=== PATIENT | male | born 1980 | race Caucasian/White ===

== ENCOUNTER 2016-06-09 11:20 | Emergency (ER) | payer OTHER ==
[~2016-06-09] VITALS: Ht 175.3 cm; Wt 114.0 kg
[~2016-06-09 11:20] MED LIST: LISI-360 PO; NORC7.5T PO
[2016-06-09 11:22] VITALS: BP 133/99; PULSE 97; RESP 16; TEMP 98.5; O2SAT 97
[2016-06-09] MEDS ORDERED: LISI-515 PO (11:34)
[2016-06-09] MEDS ORDERED: HYDR-3533 PO (11:38)
[2016-06-09] MEDS ORDERED: PENI500T PO (11:41)
--- NOTE | 2016-06-09 11:42 | PD ---
HPI Chief Complaint: Oral / Dental Pain or Problem Time Seen by Provider: 11:38 Travel History International Travel<30 days: No Contact w/Intl Traveler<30days: No Traveled to known affect area: No History of Present Illness HPI 35-year-old male presents to the emergency department for evaluation of dental pain after his tooth was pulled on , 6 days ago. Patient reports associated pain. He states this started about 2 days ago. He believes he has dry socket from the tooth being pulled. He states that his dentist offered him an appointment on Tuesday, but he wanted to be seen sooner. He also states they are did offer an appointment yesterday, he could not make it then. Patient reports a history of degenerative disc disease and hypertension. He takes lisinopril daily. Patient denies any other complaints at this time. No fevers or chills. PFSH Past Medical History Cardiovascular Problems: Yes (htn) Hypertension: Yes Musculoskeletal: Yes (DJD) Social History Alcohol Use: No Tobacco Use: Yes ("SOMETIMES") Substance Use: No Allergies-Medications (Allergen,Severity, Reaction): Coded Allergies: No Known Allergies (Unverified , 06/09/16) Reported Meds & Prescriptions Reported Meds & Active Scripts Active Reported Lisinopril 20 Mg Tab 20 Mg PO DAILY Review of Systems Except as stated in HPI: all other systems reviewed are Neg Physical Exam Narrative GENERAL: Well-developed well-nourished male patient, ambulatory. Afebrile. SKIN: Warm and dry. HEAD: Normocephalic. Atraumatic. DENTAL: No loose or chipped teeth. No malocclusion. Tooth #21 has been pulled. He has tenderness to the gingiva. No dental abscess or fluctuance noted. ENT: Mucosa pink and moist. No erythema or exudates. No uvular edema. No uvular , palatal, or tonsillar deviation. Airway patent. Nasal turbinates appear normal without nasal blood, purulent drainage or septal hematoma. EYES: No scleral icterus. No injection or drainage. NECK: Supple, trachea midline. No JVD or lymphadenopathy. CARDIOVASCULAR: Regular rate and rhythm without murmurs, gallops, or rubs. RESPIRATORY: Breath sounds equal bilaterally. No accessory muscle use. Lungs sounds are clear to auscultation. Data Data Last Documented VS Vital Signs Date Time Temp Pulse Resp B/P Pulse Ox O2 Delivery O2 Flow Rate FiO2 06/09/16 11:22 98.5 97 16 133/99 97 MDM Medical Decision Making Medical Screen Exam Complete: Yes Emergency Medical Condition: Yes Medical Record Reviewed: Yes Differential Diagnosis Dry socket versus dental abscess versus dental caries Narrative Course 35-year-old male presents to the emergency department for evaluation of dental pain after a tooth pulled 6 days ago. There is no evidence of dental abscess on exam. Patient is instructed on need to follow up with his dentist. He is given Toradol 60 mg IM in the emergency department. He'll be discharged with a short-term prescription for Lortab for pain and pen VK. Patient is agreeable to this plan. Diagnosis Primary Impression: Dry tooth socket Referrals: Dentist call for appointment Patient Instructions: Dry Socket (ED), General Instructions Additional Instructions: Follow-up with your dentist. Take antibiotic as instructed until gone. This is free at [facility]. Take Lortab as directed as needed for pain. Caution this can make you drowsy so do not drive after taking. Return to the emergency department for any acute worsening of symptoms. Med/Other Pt SpecificInfo: Prescription(s) given Scripts Penicillin V Potassium 500 Mg [id number] Mg PO Q8H 7 Days Ref 0 Prov:Unique Bennett 06/09/16 Hydrocodone-Acetaminophen (Lortab)5-325 Mg Tab1 Tab PO Q6H PRN (PAIN) #12 TAB Ref 0 Prov:Geovanni Perez MD 06/09/16 Disposition: 01 DISCHARGE HOME Condition: Stable Unique Bennett Jun 09, 2016 11:42
[2016-06-09] MEDS ORDERED: KETOROLAC TROMETHAMINE 60 MG/2 ML (IM) VIAL IM ONE (11:45)
== END 2016-06-09 11:45 | disposition home or self-care (01) ==
LOC: PHEFT 11:20
DX: M27.3 Alveolitis of jaws (principal); I10 Essential (primary) hypertension; M19.90 Unspecified osteoarthritis, unspecified site
CPT/HCPCS: 96372; 99282; J1885

== ENCOUNTER 2016-06-14 10:41 | Emergency (ER) | payer OTHER ==
[~2016-06-14] VITALS: Ht 175.3 cm; Wt 115.0 kg
[~2016-06-14 10:41] MED LIST changes: +HYDR-3533 PO; -LISI-360 PO; +LISI-515 PO; -NORC7.5T PO; +PENI500T PO
[2016-06-14 10:46] VITALS: BP 142/102; PULSE 93; RESP 16; TEMP 98.7; O2SAT 97
--- NOTE | 2016-06-14 11:09 | PD ---
HPI Chief Complaint: Oral / Dental Pain or Problem Time Seen by Provider: 11:05 Travel History International Travel<30 days: No Contact w/Intl Traveler<30days: No Traveled to known affect area: No History of Present Illness HPI Patient is a 35-year-old male presenting with dental pain. He had a tooth on the bottom left pulled a little over one week ago. He had pain related to dry socket was seen here 5 days prior. At that time there is no evidence of infection, however he was given Pen-Vee K prophylactically and opioid pain medications. He has not seen a dentist in follow-up and states he hasn't tomorrow. He states that he has run out of the pain medication and requests a refill. The pain he had this sharp sometimes but mostly aching and throbbing. He denies any bleeding, discharge, swelling or fevers. History Social History Alcohol Use: No Tobacco Use: Yes ("SOMETIMES") Allergies-Medications (Allergen,Severity, Reaction): Coded Allergies: No Known Allergies (Unverified , 06/14/16) Reported Meds & Prescriptions Reported Meds & Active Scripts Active Penicillin V Potassium 500 Mg Tab 500 Mg PO Q8H 7 Days Lortab (Hydrocodone-Acetaminophen) 5-325 Mg Tab 1 Tab PO Q6H PRN Reported Lisinopril 20 Mg Tab 20 Mg PO DAILY Review of Systems General / Constitutional: No: Fever HENT: Positive: Dental Difficulties, No: Masses, Gingival Bleeding Hematologic/Lymphatic: No: Lymph Node Enlargement Physical Exam Narrative GENERAL: Well-developed and well-nourished adult male in no acute distress. SKIN: Warm and dry. Good turgor without tenting. HEAD: Normocephalic and atraumatic. EYES: PERRL bilaterally, 5mm. EOMI bilaterally. No injection or icterus present. No proptosis. Lids without edema or erythema. ENT: Tooth #21 is absent. The gingiva has tenderness diffusely but there is no edema, erythema, induration, fluctuance, drainage or bleeding. The area appears to be healing well and there is no open socket or deep pocket or any food impaction. No buccal or sublingual masses. Buccal mucosa pink and moist. Oropharynx free of erythema, tonsillar hypertrophy, masses, swelling, asymmetry and exudates. Uvula midline and airway patent. NECK: Supple, no meningeal signs. No induration or masses palpated. Trachea midline, no JVD. No cervical or facial lymphadenopathy. CARDIOVASCULAR: Regular rate and rhythm without murmurs, rubs, clicks or gallops. RESPIRATORY: Clear to auscultation bilaterally with symmetrical rise and fall, no distress or use of accessory muscles. NEUROLOGIC: CN II-XII grossly intact. Awake and alert. Motor grossly within normal limits. Normal speech. PSYCHIATRIC: Appropriate mood and affect; insight and judgment normal. Data Data Last Documented VS Vital Signs Date Time Temp Pulse Resp B/P Pulse Ox O2 Delivery O2 Flow Rate FiO2 06/14/16 10:46 98.7 93 16 142/102 97 MDM Medical Screen Exam Complete: Yes Emergency Medical Condition: No Narrative Course Patient's 35-year-old male presenting for the second time in 5 days for dental pain. He had a tooth pulled and relates this pain is from a "dry socket". He was given Pen-Vee K prophylactically and opioid narcotics for pain. There is no evidence of infection on exam. He has not seen his dentist in follow-up but is scheduled to see him tomorrow. I examined the patient that I do not believe opioid narcotics are warranted emergently and will recommend anti- inflammatories and follow-up with his dentist. A medical screening exam was performed: At the time of evaluation the presenting medical condition was determined not to be of an emergent nature. The patient was given the option of receiving additional care, but declined. Patient was given options for additional community resources from which to obtain care. The Patient Has Been advised to seek medical attention for their presenting complaint. The patient has been advised to return to the ER at any time if an emergent condition develops. Primary Impression: Encounter for medical screening examination Condition: Stable Laron Carpio III Jun 14, 2016 11:09
== END 2016-06-14 11:12 | disposition left against medical advice (07) ==
LOC: PHEFT 10:41
DX: K08.89 Other specified disorders of teeth and supporting structures (principal); Z72.0 Tobacco use
CPT/HCPCS: 99281

== ENCOUNTER 2016-06-21 08:35 | Emergency (ER) | payer OTHER ==
[~2016-06-21] VITALS: Ht 175.3 cm; Wt 116.9 kg
[2016-06-21 08:39] VITALS: BP 137/106; PULSE 88; RESP 14; TEMP 99.1; O2SAT 97
[2016-06-21] MEDS ORDERED: CLIN75CA PO (08:57)
[2016-06-21] MEDS ORDERED: HYDR-3534 PO (08:57)
[2016-06-21] MEDS ORDERED: TYLE325T PO (08:58)
--- NOTE | 2016-06-21 09:05 | PD ---
HPI Chief Complaint: Abdominal Pain Time Seen by Provider: 08:46 Travel History International Travel<30 days: No Contact w/Intl Traveler<30days: No Traveled to known affect area: No History of Present Illness HPI This is a 35 year old male who presents with right sided abdominal pain, dull, pressure like, 4/10, associated with a low grade fever and nausea. He denies any vomiting or diarrhea. He denies any chest pain or shortness of breath. Three weeks ago he had a tooth extraction and he has been having some jaw pain. He was given clindamycin 2 days ago by an ER, and ever since he took the clindamycin it made him sick, so he switched back to penicillin. He has been taking lortab and tylenol for jaw pain. The patient is concerned about his liver because he has been taking so much tylenol. PFSH Past Medical History Hx Anticoagulant Therapy: No Cardiovascular Problems: Yes (HTN ) Diabetes: No Diminished Hearing: No Hypertension: Yes Musculoskeletal: Yes (DDD) Influenza Vaccination: No Past Surgical History Tonsillectomy: Yes Social History Alcohol Use: No Tobacco Use: Yes ("SOMETIMES") Substance Use: No Allergies-Medications (Allergen,Severity, Reaction): Coded Allergies: No Known Allergies (Unverified , 06/21/16) Reported Meds & Prescriptions Reported Meds & Active Scripts Active Penicillin V Potassium 500 Mg Tab 500 Mg PO Q8H 7 Days Reported Tylenol (Acetaminophen) 325 Mg Tab 325 Mg PO Q4H PRN Clindamycin (Clindamycin HCl) 75 Mg Cap 75 Mg PO Q6H Lortab (Hydrocodone-Acetaminophen) 7.5-325 Mg Tab 1 Tab PO Q4H PRN Lisinopril 20 Mg Tab 20 Mg PO DAILY Review of Systems Except as stated in HPI: all other systems reviewed are Neg Physical Exam Narrative GENERAL:Well appearing, no acute distress SKIN: Warm and dry. HEAD: Atraumatic. Normocephalic. EYES: Pupils equal and round. No injection or drainage. ENT: Moist mucous membranes NECK: Trachea midline. CARDIOVASCULAR: Regular rate and rhythm. No murmur appreciated. RESPIRATORY: Clear to auscultation. Breath sounds equal bilaterally. GASTROINTESTINAL: Abdomen soft, tender to palpation in the right upper quadrant with no rebound/guarding. MUSCULOSKELETAL: No obvious deformities. NEUROLOGICAL: Awake and alert. No obvious cranial nerve deficits. Moving all extremities. PSYCHIATRIC: Appropriate mood and affect; insight and judgment normal. Data Data Last Documented VS Vital Signs Date Time Temp Pulse Resp B/P Pulse Ox O2 Delivery O2 Flow Rate FiO2 06/21/16 08:39 99.1 88 14 137/106 97 Orders Complete Blood Count With Diff (06/21/16 09:08) Comprehensive Metabolic Panel (06/21/16 09:08) ^ Insert Iv (06/21/16 09:08) Ed Poc Ultrasound (06/21/16 ) Acetamin-Hydrocod 325-5 Mg ([place] 5-325 (06/21/16 10:00) Labs Laboratory Tests Test 06/21/16 09:20 White Blood Count 6.8 TH/MM3 Red Blood Count 4.72 MIL/MM3 Hemoglobin 14.0 GM/DL Hematocrit 40.7 % Mean Corpuscular Volume 86.4 FL Mean Corpuscular Hemoglobin 29.7 PG Mean Corpuscular Hemoglobin 34.4 % Concent Red Cell Distribution Width 12.4 % Platelet Count 326 TH/MM3 Mean Platelet Volume 6.8 FL Neutrophils (%) (Auto) 62.1 % Lymphocytes (%) (Auto) 26.6 % Monocytes (%) (Auto) 8.4 % Eosinophils (%) (Auto) 1.8 % Basophils (%) (Auto) 1.1 % Neutrophils # (Auto) 4.2 TH/MM3 Lymphocytes # (Auto) 1.8 TH/MM3 Monocytes # (Auto) 0.6 TH/MM3 Eosinophils # (Auto) 0.1 TH/MM3 Basophils # (Auto) 0.1 TH/MM3 CBC Comment DIFF FINAL Differential Comment Sodium Level 136 MEQ/L Potassium Level 4.3 MEQ/L Chloride Level 101 MEQ/L Carbon Dioxide Level 28.4 MEQ/L Anion Gap 7 MEQ/L Blood Urea Nitrogen 18 MG/DL Creatinine 1.00 MG/DL Estimat Glomerular Filtration 85 ML/MIN Rate Random Glucose 91 MG/DL Calcium Level 8.9 MG/DL Total Bilirubin 0.4 MG/DL Aspartate Amino Transf 23 U/L (AST/SGOT) Alanine Aminotransferase 55 U/L (ALT/SGPT) Alkaline Phosphatase 69 U/L Total Protein 7.8 GM/DL Albumin 3.9 GM/DL MDM Medical Decision Making Medical Screen Exam Complete: Yes Emergency Medical Condition: Yes Interpretation(s) Temperature is 99.1 No leukocytosis Electrolytes are reassuring Differential Diagnosis Cholelithiasis, cholecystitis, appendicitis, hepatitis Narrative Course This is a 35-year-old male who presents to the emergency department with right upper quadrant abdominal pain in the setting of to recent dental extractions. He was concerned that he may have some liver toxicity from all the Tylenol that he is taking. He was placed on a monitor and an IV was established. Labs are obtained which are reassuring with a normal white blood cell count. He is tender in the right upper quadrant. I performed a bedside ultrasound and I don' t appreciate any cholecystitis. I didn't appreciate any obvious gallstones. I think the patient is safe for outpatient evaluation by his primary care physician. Procedures Procedure Narrative Gallbladder ultrasound: Ultrasound of the gallbladder was performed. Gallbladder wall is .09cm and common bile duct measures .17cm. patient did have some tenderness with evaluation of the gallbladder, but no pericholecystic fluid appreciated. Diagnosis Primary Impression: Abdominal pain Qualified Code: R10.11 - Right upper quadrant abdominal pain Ruled Out: Cholecystitis, Liver failure Patient Instructions: General Instructions Additional Instructions: If you develop severe or worsening abdominal pain, fever>100.4, persistent vomiting or inability to eat or drink return to the emergency department immediately. Follow up with your primary care physician in 1-2 days for a check-up. Med/Other Pt SpecificInfo: No Change to Meds Disposition: 01 DISCHARGE HOME Condition: Stable Namrata Castrejon MD Jun 21, 2016 09:05
[2016-06-21 09:30] LABS: AUTOMATED NEUTROPHIL # 4.2 TH/MM3 (1.8-7.7); BASOPHIL # 0.1 TH/MM3 (0-0.2); BASOPHIL % 1.1 % (0.0-2.0); EOSINOPHIL # 0.1 TH/MM3 (0-0.4); EOSINOPHIL % 1.8 % (0.0-4.0); HEMATOCRIT 40.7 % (39.0-51.0); HEMO FLAGS DIFF FINAL; LYMPH % 26.6 % (9.0-44.0); LYMPHOCYTE # 1.8 TH/MM3 (1.0-4.8); MEAN CELL VOLUME 86.4 FL (80.0-100.0); MEAN CORPUSCULAR HEMOGLOBIN 29.7 PG (27.0-34.0); MEAN CORPUSCULAR HGB CONC 34.4 % (32.0-36.0); MONO % 8.4 % (0.0-8.0); NEUT % 62.1 % (16.0-70.0); PLATELET COUNT 326 TH/MM3 (150-450); RED BLOOD COUNT 4.72 MIL/MM3 (4.50-5.90); RED CELL DISTRIBUTION WIDTH 12.4 % (11.6-17.2); WHITE BLOOD COUNT 6.8 TH/MM3 (4.0-11.0)
[2016-06-21 09:53] LABS: BICARBONATE 28.4 MEQ/L (21.0-32.0)
[2016-06-21 09:56] LABS: ANION GAP 7 MEQ/L (5-15); CHLORIDE 101 MEQ/L (98-107); GLOMERULAR FILTRATION RATE 85 ML/MIN (>89); POTASSIUM 4.3 MEQ/L (3.5-5.1); SODIUM (NA) 136 MEQ/L (136-145)
[2016-06-21 09:57] LABS: ALT (GPT) 55 U/L (12-78)
[2016-06-21 09:58] LABS: TOTAL BILIRUBIN ADULT 0.4 MG/DL (0.2-1.0)
[2016-06-21 09:59] LABS: ALKALINE PHOSPHATASE 69 U/L (45-117)
[2016-06-21] MEDS ORDERED: ACETAMINOPHEN/HYDROcodone 325 MG/5 MG TAB PO ONE (10:00)
[2016-06-21 10:01] LABS: AST (GOT) 23 U/L (15-37)
[2016-06-21 10:02] LABS: BLOOD UREA NITROGEN 18 MG/DL (7-18)
[2016-06-21] MEDS ORDERED: ZOFR4TAB3 SL (10:26)
[2016-06-21 10:44] VITALS: BP 145/72
[2016-06-21 10:46] VITALS: RESP 16
== END 2016-06-21 10:54 | disposition home or self-care (01) ==
LOC: PHED 08:35
DX: R10.11 Right upper quadrant pain (principal); I10 Essential (primary) hypertension
CPT/HCPCS: 80053; 85025; 99284

== ENCOUNTER 2016-07-09 12:20 | Emergency (ER) | payer OTHER ==
[~2016-07-09] VITALS: Ht 175.3 cm; Wt 110.0 kg
[~2016-07-09 12:20] MED LIST changes: +CLIN75CA PO; -HYDR-3533 PO; +HYDR-3534 PO; +TYLE325T PO; +ZOFR4TAB3 SL
[2016-07-09 12:26] VITALS: BP 142/92; PULSE 108; RESP 16; TEMP 98.2; O2SAT 98
--- NOTE | 2016-07-09 13:02 | PD ---
HPI Chief Complaint: Oral / Dental Pain or Problem Time Seen by Provider: 12:57 Travel History International Travel<30 days: No Contact w/Intl Traveler<30days: No Traveled to known affect area: No History of Present Illness HPI Patient comes in complaining of continued left lower dental pain ongoing since having an extraction done on the of this month. Patient states he's has a follow-up appointment with the dentist however is not until this upcoming Tuesday. Patient states he went to [place] on the and given a prescription for [place] as well as ibuprofen. Patient states he's out of [place] only has two ibuprofen left. Patient states pain is worse with eating. Denies any fevers, radiation of the pain, difficulty swallowing, or being on antibiotics. PFSH Past Medical History Hx Anticoagulant Therapy: No Cardiovascular Problems: Yes (HTN ) Diabetes: No Diminished Hearing: No Hypertension: Yes Musculoskeletal: Yes (DDD) Past Surgical History Tonsillectomy: Yes Social History Alcohol Use: No Tobacco Use: Yes ("SOMETIMES") Substance Use: No Allergies-Medications (Allergen,Severity, Reaction): Coded Allergies: No Known Allergies (Unverified , 07/09/16) Reported Meds & Prescriptions Reported Meds & Active Scripts Active Ibuprofen 800 Mg Tab 800 Mg PO Q8H PRN Augmentin (Amoxicillin-Clavulanate) 875-125 mg Tab 875 Mg PO BID 7 Days not for use in CrCl <30 ml/min. Zofran Odt (Ondansetron Odt) 4 Mg Tab 4 Mg SL Q6HR PRN Penicillin V Potassium 500 Mg Tab 500 Mg PO Q8H 7 Days Reported Tylenol (Acetaminophen) 325 Mg Tab 325 Mg PO Q4H PRN Clindamycin (Clindamycin HCl) 75 Mg Cap 75 Mg PO Q6H Lortab (Hydrocodone-Acetaminophen) 7.5-325 Mg Tab 1 Tab PO Q4H PRN Lisinopril 20 Mg Tab 20 Mg PO DAILY Physical Exam Narrative GENERAL: Well-developed, overly nourished, in no acute distress, and non-ill appearing. SKIN: Warm and dry. HEAD: Atraumatic. Normocephalic. EYES: Pupils equal and round. EOMI. No scleral icterus. No injection or drainage. ENT: No nasal bleeding or discharge. Mucous membranes pink and moist. Appears to be a dry socket/low healing wound from previous dental extraction is tender to palpation left lower jaw. There is no drainage, visible abscess, or palpable abscess. Floor the mouth, submandibular, submental are all to soft palpation. NECK: Trachea midline. No cervical lymphadenopathy. Supple. No nuclear rigidity. RESPIRATORY: No accessory muscle use. No respiratory distress. MUSCULOSKELETAL: No obvious deformities. No clubbing. No cyanosis. No edema. Full range of motion. NEUROLOGICAL: Awake and alert. No obvious cranial nerve deficits. Motor grossly within normal limits. Normal speech. PSYCHIATRIC: Appropriate mood and affect; insight and judgment normal. Data Data Last Documented VS Vital Signs Date Time Temp Pulse Resp B/P Pulse Ox O2 Delivery O2 Flow Rate FiO2 07/09/16 12:26 98.2 108 16 142/92 98 MDM Medical Decision Making Medical Screen Exam Complete: Yes Emergency Medical Condition: No Differential Diagnosis Dental infection, dental abscess, dentalgia, dry socket, other Narrative Course The patient presented with dental pain. There is no fever. There is no significant facial swelling or evidence of cellulitis. There is no evidence of drainable abscess at this time. There is no evidence of significant deep or invading abscess at this time. The patient will be placed on antibiotics and pain medication. The patient was instructed to follow up with a dentist as scheduled. Warnings were discussed with the patient regarding worsening of infection. The patient is to return if pain worsens, develops progressive swelling or facial redness or fever. The patient agrees with plan. Patient in no obvious distress upon re-evaluation. Patient was offered a dental block but declined at this time. Patient was asked if they wanted to speak to my attending, which the patient did not wish to do at this time. Any questions/concerns in reference to patient diagnosis/condition discussed and clarified prior to patient's discharge. Reinforced sheer importance of close follow up with patient's primary physician or primary care clinic and dentist. Instructed patient to return to ED immediately, if symptoms return/worsen. Pt showed understanding of above instructions. Further instructions and recommendations were detailed in discharge paperwork. Pt ambulated without difficulty out of ED at discharge. Diagnosis Primary Impression: Dentalgia Patient Instructions: Dental Abscess (GEN), Dental Caries (ED), Dry Socket (ED) , General Instructions Additional Instructions: Follow-up with your primary care physician and dentist as soon as possible. Rinse mouth with warm salt water gargles. Take all medication as prescribed. Return to the emergency department if symptoms get worse. Med/Other Pt SpecificInfo: Prescription(s) given Scripts Ibuprofen 800 Mg [id number] Mg PO Q8H PRN (PAIN SCALE 1 TO 10) #15 TAB Ref 0 Prov:Nancy Campa MD 07/09/16 Amoxicillin-Clavulanate (Augmentin)875-125 mg [id number] Mg PO BID 7 Days Ref 0 not for use in CrCl <30 ml/min. Prov:Nancy Campa MD 07/09/16 Disposition: 01 DISCHARGE HOME Condition: Stable Benjamín Lynn Jul 09, 2016 13:02
[2016-07-09] MEDS ORDERED: AUGM875T PO (13:04)
[2016-07-09] MEDS ORDERED: IBUP800T23 PO (13:04)
== END 2016-07-09 13:20 | disposition home or self-care (01) ==
LOC: NEPB 12:20
DX: K08.89 Other specified disorders of teeth and supporting structures (principal); I10 Essential (primary) hypertension
CPT/HCPCS: 99282

== ENCOUNTER 2016-11-02 12:12 | Emergency (ER) | payer OTHER ==
[~2016-11-02] VITALS: Ht 175.3 cm; Wt 114.5 kg
[~2016-11-02 12:12] MED LIST changes: -CLIN75CA PO; -HYDR-3534 PO; -PENI500T PO; -TYLE325T PO; -ZOFR4TAB3 SL
[2016-11-02 12:24] VITALS: BP 103/74; PULSE 120; RESP 16; TEMP 98.8; O2SAT 98
[2016-11-02] MEDS ORDERED: LISI40TA PO (13:01)
--- NOTE | 2016-11-02 13:26 | PD ---
HPI Chief Complaint: Back/ Neck Pain or Injury Time Seen by Provider: 13:11 Travel History International Travel<30 days: No Contact w/Intl Traveler<30days: No Traveled to known affect area: No History of Present Illness HPI This 35-year-old male is complaining of left posterior chest pain. He says that he was playing catch 2 days ago and thinks he injured it pulling a football. He's had a left posterior chest pain since the pain is aggravated by certain movements, deep breathing and sneezing. He has not had fever or chills. PFSH Past Medical History Hx Anticoagulant Therapy: No Cardiovascular Problems: Yes (HTN) Diabetes: No Diminished Hearing: No Hypertension: Yes Musculoskeletal: Yes (DDD) Influenza Vaccination: No ?: Not Past Surgical History Tonsillectomy: Yes Social History Alcohol Use: No Tobacco Use: Yes ("SOMETIMES") Substance Use: No Allergies-Medications (Allergen,Severity, Reaction): Coded Allergies: No Known Allergies (Unverified , 11/02/16) Reported Meds & Prescriptions Reported Meds & Active Scripts Active Reported Lisinopril 40 Mg Tab 40 Mg PO DAILY Lisinopril 20 Mg Tab 20 Mg PO DAILY Review of Systems General / Constitutional: No: Fever Eyes: No: Diploplia, Blurred Vision HENT: No: Headaches Cardiovascular: Positive: Chest Pain or Discomfort, No: Palpitations Respiratory: No: Cough, Shortness of Breath Gastrointestinal: No: Nausea, Vomiting Genitourinary: No: Frequency, Dysuria Musculoskeletal: No: Myalgias, Arthralgias Skin: No Rash Physical Exam Narrative GENERAL: Well-developed male SKIN: Focused skin assessment warm/dry. HEAD: Atraumatic. Normocephalic. EYES: Pupils equal and round. No scleral icterus. No injection or drainage. ENT: No nasal bleeding or discharge. Mucous membranes pink and moist. NECK: Trachea midline. No JVD. CARDIOVASCULAR: Regular rate and rhythm. No murmur appreciated. RESPIRATORY: No accessory muscle use. Clear to auscultation. Breath sounds equal bilaterally. The pain is a left posterior chest GASTROINTESTINAL: Abdomen soft, non-tender, nondistended. Hepatic and splenic margins not palpable. MUSCULOSKELETAL: No obvious deformities. No clubbing. No cyanosis. No edema. NEUROLOGICAL: Awake and alert. No obvious cranial nerve deficits. Motor grossly within normal limits. Normal speech. PSYCHIATRIC: Appropriate mood and affect; insight and judgment normal. Data Data Last Documented VS Vital Signs Date Time Temp Pulse Resp B/P Pulse Ox O2 Delivery O2 Flow Rate FiO2 11/02/16 12:24 98.8 120 16 103/74 98 Orders Chest, Pa & Lat (11/02/16 13:22) [facility] Medical Decision Making Medical Screen Exam Complete: Yes Emergency Medical Condition: Yes Medical Record Reviewed: Yes Differential Diagnosis Differential includes rib fracture, chest wall pain, muscular strain Narrative Course Chest x-ray is negative. History is consistent with a muscular strain of the chest wall. Diagnosis Primary Impression: Chest wall pain Scripts Hydrocodone-Acetaminophen (Lortab)7.5-325 Mg Tab1 Tab PO Q4H PRN (PAIN) #15 TAB Ref 0 Prov:Francisco Javier Ruth MD 11/02/16 Cyclobenzaprine (Flexeril)10 Mg Tab10 Mg PO TID #20 TAB Ref 0 Prov:Francisco Javier Ruth MD 11/02/16 Disposition: 01 DISCHARGE HOME Condition: Stable Francisco Javier Ruth MD Nov 02, 2016 13:26
--- NOTE | 2016-11-02 14:06 | RADHPO ---
EXAM DATE/TIME: 11/02/2016 13:32 [facility] COMPARISON: No previous studies available for comparison. INDICATIONS : Posterior chest pain after throwing football 3 days ago. MEDICAL HISTORY : Hypertension. DDD. SURGICAL HISTORY : Tonsillectomy. Right wrist. ENCOUNTER: Initial ACUITY: 3 days PAIN SCORE: 7/10 LOCATION: chest FINDINGS: PA and lateral views of the chest demonstrate the lungs to be symmetrically aerated without evidence of mass, infiltrate or effusion. The cardiomediastinal contours are unremarkable. Osseous structure s are intact. CONCLUSION: 1. No acute cardiopulmonary disease. Agapito Ward MD on November 02, 2016 at 14:04 Board Certified Radiologist. This report was verified electronically.
[2016-11-02] MEDS ORDERED: CYCL1TAB29 PO (14:19)
[2016-11-02] MEDS ORDERED: HYDR-3534 PO (14:19)
== END 2016-11-02 14:42 | disposition home or self-care (01) ==
LOC: PHED 12:12
DX: R07.89 Other chest pain (principal); I10 Essential (primary) hypertension; Z72.0 Tobacco use
CPT/HCPCS: 71020; 99284

== ENCOUNTER 2016-11-17 10:44 | Inpatient (IN) | payer OTHER ==
[~2016-11-17] VITALS: Ht 175.3 cm; Wt 98.5 kg
[~2016-11-17 10:44] MED LIST changes: +CYCL1TAB29 PO; +HYDR-3534 PO; +LISI40TA PO
[2016-11-17 10:47] VITALS: BP 136/92; PULSE 114; RESP 20; TEMP 98.6; O2SAT 97
--- NOTE | 2016-11-17 11:19 | PD ---
HPI Chief Complaint: Psychiatric Symptoms Time Seen by Provider: 11:15 Travel History International Travel<30 days: No Contact w/Intl Traveler<30days: No Traveled to known affect area: No History of Present Illness HPI 35-year-old male presents emergency department requesting psychiatric evaluation. Patient reports he has a history of bipolar, borderline personality disorder, anxiety, depression, PTSD with rage. He reports that he moved here about a year and a half ago from [place] and has been off of his psych meds which include an inega, Lamictal since that time. He reports he recently ended a relationship which has left him feeling depressed, anxious and recently today homicidal and suicidal. He reports his plan is to attempt to hang himself which she is attempted in the past. He also reports feelings of wanting to "strangle other people". PFSH Past Medical History Narrative Medical Significant for bipolar disorder, borderline personality disorder, anxiety, depression, PTSD Hx Anticoagulant Therapy: No Cardiovascular Problems: Yes (CHF) Diabetes: No Diminished Hearing: No Hypertension: Yes Musculoskeletal: Yes (DDD) Past Surgical History Tonsillectomy: Yes Social History Alcohol Use: No Tobacco Use: Yes ("SOMETIMES") Substance Use: No Allergies-Medications (Allergen,Severity, Reaction): Coded Allergies: No Known Allergies (Unverified , 11/17/16) Reported Meds & Prescriptions Reported Meds & Active Scripts Active Reported Lamictal (Lamotrigine) 100 Mg Tab 100 Mg PO BID [invega shot ] Aspirin 81 Mg Chew 81 Mg CHEW DAILY Robaxin (Methocarbamol) 500 Mg Tab 500 Mg PO QID [place] (Hydrocodone-Acetaminophen) 10-325 Mg Tab 1 Tab PO Q6H PRN Oxycodone (Oxycodone HCl) 30 Mg Tab 30 Mg PO Q12HR PRN Atenolol 50 Mg Tab 50 Mg PO DAILY Lisinopril 40 Mg Tab 40 Mg PO DAILY Lisinopril 20 Mg Tab 20 Mg PO DAILY Review of Systems Except as stated in HPI: all other systems reviewed are Neg General / Constitutional: No: Fever Eyes: No: Visual changes HENT: No: Headaches Cardiovascular: No: Chest Pain or Discomfort Respiratory: No: Shortness of Breath Gastrointestinal: No: Abdominal Pain Genitourinary: No: Dysuria Psychiatric: Positive: Depression, Suicidal Ideations, Homicidal Ideation Physical Exam Narrative GENERAL: Alert, well-appearing male. No acute distress. SKIN: Focused skin assessment warm/dry. HEAD: Atraumatic. Normocephalic. EYES: Pupils equal and round. No scleral icterus. No injection or drainage. ENT: No nasal bleeding or discharge. Mucous membranes pink and moist. NECK: Trachea midline. No JVD. CARDIOVASCULAR: Regular rate and rhythm. No murmur appreciated. RESPIRATORY: No accessory muscle use. Clear to auscultation. Breath sounds equal bilaterally. GASTROINTESTINAL: Abdomen soft, non-tender, nondistended. Hepatic and splenic margins not palpable. MUSCULOSKELETAL: No obvious deformities. No clubbing. No cyanosis. No edema. NEUROLOGICAL: Awake and alert. No obvious cranial nerve deficits. Motor grossly within normal limits. Normal speech. PSYCHIATRIC: Appropriate mood and affect; insight and judgment normal. Patient avoids eye contact. Data Data Last Documented VS Vital Signs Date Time Temp Pulse Resp B/P Pulse Ox O2 Delivery O2 Flow Rate FiO2 11/17/16 10:47 98.6 114 20 136/92 97 Room Air Orders Complete Blood Count With Diff (11/17/16 11:27) Comprehensive Metabolic Panel (11/17/16 11:27) Psych Screen (11/17/16 11:27) Drug Screen, Random Urine (11/17/16 11:27) Diet Regular Basic (11/17/16 Lunch) Labs Laboratory Tests Test 11/17/16 11:35 White Blood Count 8.1 TH/MM3 Red Blood Count 4.83 MIL/MM3 Hemoglobin 14.0 GM/DL Hematocrit 41.3 % Mean Corpuscular Volume 85.5 FL Mean Corpuscular Hemoglobin 29.0 PG Mean Corpuscular Hemoglobin 33.9 % Concent Red Cell Distribution Width 14.9 % Platelet Count 337 TH/MM3 Mean Platelet Volume 7.2 FL Neutrophils (%) (Auto) 75.9 % Lymphocytes (%) (Auto) 15.8 % Monocytes (%) (Auto) 7.5 % Eosinophils (%) (Auto) 0.4 % Basophils (%) (Auto) 0.4 % Neutrophils # (Auto) 6.2 TH/MM3 Lymphocytes # (Auto) 1.3 TH/MM3 Monocytes # (Auto) 0.6 TH/MM3 Eosinophils # (Auto) 0.0 TH/MM3 Basophils # (Auto) 0.0 TH/MM3 CBC Comment DIFF FINAL Differential Comment Sodium Level 139 MEQ/L Potassium Level 4.2 MEQ/L Chloride Level 105 MEQ/L Carbon Dioxide Level 25.5 MEQ/L Anion Gap 9 MEQ/L Blood Urea Nitrogen 17 MG/DL Creatinine 1.12 MG/DL Estimat Glomerular Filtration 75 ML/MIN Rate Random Glucose 106 MG/DL Calcium Level 9.0 MG/DL Total Bilirubin 0.6 MG/DL Aspartate Amino Transf 15 U/L (AST/SGOT) Alanine Aminotransferase 39 U/L (ALT/SGPT) Alkaline Phosphatase 67 U/L Total Protein 7.3 GM/DL Albumin 3.6 GM/DL Urine Opiates Screen NEG Urine Barbiturates Screen NEG Urine Amphetamines Screen NEG Urine Benzodiazepines Screen NEG Urine Cocaine Screen NEG Urine Cannabinoids Screen NEG MDM Medical Decision Making Medical Screen Exam Complete: Yes Emergency Medical Condition: Yes Differential Diagnosis Differentials include homicidal ideation, suicidal ideation, depression, medication noncompliance,mood disorder, bipolar disorder, Narrative Course 35-year-old male presents to the emergency Department voluntarily requesting psychiatric evaluation. Patient reports a history of borderline personality disorder, bipolar, anxiety and depression. He reports he's been off of his psychiatric medications for the last 1-1/2 years. He reports he recently experienced a breakup with his girlfriend which has caused him to feel homicidal and suicidal. Patient is Osorio acted. Labs and tox screen pending. Labs reviewed. Patient is medically cleared for psychiatric evaluation. Diagnosis Primary Impression: Homicidal ideation Additional Impression: Suicidal ideation Elaine Morrell Nov 17, 2016 11:19
[2016-11-17] MEDS ORDERED: HYDR-3366 PO (11:24)
[2016-11-17] MEDS ORDERED: LAMO100 PO (11:24)
[2016-11-17] MEDS ORDERED: [UNRECOGNIZED DRUG - OTHER] (11:24)
[2016-11-17] MEDS ORDERED: ATEN50TA PO (11:24)
[2016-11-17] MEDS ORDERED: ASPI81CH CHEW (11:24)
[2016-11-17] MEDS ORDERED: ROBA500T PO (11:24)
[2016-11-17] MEDS ORDERED: OXYC30TA PO (11:24)
[2016-11-17 12:06] LABS: AUTOMATED NEUTROPHIL # 6.2 TH/MM3 (1.8-7.7); BASOPHIL % 0.4 % (0.0-2.0); EOSINOPHIL % 0.4 % (0.0-4.0); HEMATOCRIT 41.3 % (39.0-51.0); HEMO FLAGS DIFF FINAL; LYMPH % 15.8 % (9.0-44.0); LYMPHOCYTE # 1.3 TH/MM3 (1.0-4.8); MEAN CELL VOLUME 85.5 FL (80.0-100.0); MEAN CORPUSCULAR HGB CONC 33.9 % (32.0-36.0); MONO % 7.5 % (0.0-8.0); NEUT % 75.9 % (16.0-70.0); PLATELET COUNT 337 TH/MM3 (150-450); RED BLOOD COUNT 4.83 MIL/MM3 (4.50-5.90); RED CELL DISTRIBUTION WIDTH 14.9 % (11.6-17.2); WHITE BLOOD COUNT 8.1 TH/MM3 (4.0-11.0)
[2016-11-17 12:15] LABS: AMPHETAMINE, URINE NEG (NEG); BARBITURATES, URINE NEG (NEG); COCAINE, URINE NEG (NEG)
[2016-11-17 12:28] LABS: ANION GAP 9 MEQ/L (5-15); AST (GOT) 15 U/L (15-37); BICARBONATE 25.5 MEQ/L (21.0-32.0); BLOOD UREA NITROGEN 17 MG/DL (7-18); CHLORIDE 105 MEQ/L (98-107); GLOMERULAR FILTRATION RATE 75 ML/MIN (>89); POTASSIUM 4.2 MEQ/L (3.5-5.1); SODIUM (NA) 139 MEQ/L (136-145)
[2016-11-17 12:31] LABS: ALKALINE PHOSPHATASE 67 U/L (45-117); ALT (GPT) 39 U/L (12-78); TOTAL BILIRUBIN ADULT 0.6 MG/DL (0.2-1.0)
[2016-11-17 14:03] VITALS: BP 119/79; PULSE 81; RESP 18; TEMP 97.2; O2SAT 97
[2016-11-17] MEDS ORDERED: OLANZapine ODT 10 MG TAB PO ONE (16:45)
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
[2016-11-17] MEDS ORDERED: ACETAMINOPHEN 325 MG TAB PO PRN (17:30)
[2016-11-17] MEDS ORDERED: ALUMINUM/MAGNESIUM/SIMETH 30 ML CUP PO PRN (17:30)
[2016-11-17] MEDS ORDERED: MAGNESIUM HYDROXIDE SUSP 30 ML CUP PO PRN (17:30)
[2016-11-17 18:08] VITALS: BP 114/73; PULSE 75; RESP 18; O2SAT 96
[2016-11-17 22:12] VITALS: BP 109/69; PULSE 77; RESP 17; O2SAT 99
[2016-11-17 22:52] VITALS: BP 183/111; PULSE 62; RESP 18; TEMP 97.5; O2SAT 96
[2016-11-17 22:54] VITALS: BP 128/69; PULSE 62; RESP 18; TEMP 97.5; O2SAT 96
[2016-11-18 09:49] LABS: ANION GAP 7 MEQ/L (5-15); BICARBONATE 29.6 MEQ/L (21.0-32.0); BLOOD UREA NITROGEN 15 MG/DL (7-18); CHLORIDE 102 MEQ/L (98-107); GLOMERULAR FILTRATION RATE 81 ML/MIN (>89); SODIUM (NA) 139 MEQ/L (136-145)
[2016-11-18 09:53] LABS: HDL CHOLESTEROL 41.7 MG/DL (40.0-60.0); LDL CHOLESTEROL 146 MG/DL (0-99)
[2016-11-18 11:36] LABS: HEMOGLOBIN A1a 0.7 %; HEMOGLOBIN A1b 1.7 %; HEMOGLOBIN Ao 85.5 %; HEMOGLOBIN LA1C 1.9 %; HEMOGLOBIN P3 3.6 %
[2016-11-18] MEDS ORDERED: ALUMINUM/MAGNESIUM/SIMETH 30 ML CUP PO PRN (16:00)
[2016-11-18] MEDS ORDERED: diphenhydrAMINE HCL 50 MG CAP PO PRN (16:00)
[2016-11-18] MEDS ORDERED: MAGNESIUM HYDROXIDE SUSP 30 ML CUP PO PRN (16:00)
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
[2016-11-18 17:14] VITALS: BP 144/80; PULSE 77; RESP 17; TEMP 98.7; O2SAT 99
[2016-11-18] MEDS: IBUPROFEN 800 MG TAB PO PRN ×2 (17:25→22:55)
[2016-11-18] MEDS: hydrOXYzine HCL 50 MG TAB PO PRN ×2 (17:25→22:55)
[2016-11-18] MEDS: PALIPERIDONE ER 6 MG TAB PO SCH (18:00)
[2016-11-18] MEDS: METHOCARBAMOL 500 MG TAB PO SCH ×2 (18:07→20:41)
[2016-11-18] MEDS: lamoTRIgine 25 MG TAB PO SCH (20:41)
[2016-11-19 06:42] VITALS: BP 125/58; PULSE 69; RESP 18; TEMP 97.1; O2SAT 96
[2016-11-19] MEDS ORDERED: LISINOPRIL 20 MG TAB PO SCH ×2 (09:00)
[2016-11-19] MEDS ORDERED: ATENOLOL 50 MG TAB PO SCH (09:00)
[2016-11-19] MEDS ORDERED: ASPIRIN 81 MG CHEW TAB CHEW SCH (09:00)
[2016-11-19] MEDS ORDERED: NICOTINE 21 MG/24 HR PATCH T-DERMAL SCH (09:00)
[2016-11-19] MEDS: PALIPERIDONE ER 6 MG TAB PO SCH (09:17)
[2016-11-19] MEDS: lamoTRIgine 25 MG TAB PO SCH (09:17)
[2016-11-19] MEDS: METHOCARBAMOL 500 MG TAB PO SCH (09:17)
[2016-11-19] MEDS ORDERED: ATEN50TA PO (11:02)
[2016-11-19] MEDS ORDERED: LAMO25 PO (11:02)
[2016-11-19] MEDS ORDERED: LISI-515 PO (11:02)
[2016-11-19] MEDS ORDERED: ASPI81CH25 CHEW (11:02)
[2016-11-19] MEDS ORDERED: INVE6TAB3 PO (11:02)
[2016-11-19] MEDS ORDERED: METH500T3 PO (11:02)
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
[2016-11-20] MEDS ORDERED: LISI20TA PO (10:43)
[2016-11-20] MEDS ORDERED: IBUP-232 PO (12:30)
== END 2016-11-19 13:05 | disposition home or self-care (01) | DRG 882 ==
LOC: NEPD 10:44 → NEDA 17:32 → H270 22:25
PROVIDERS: ADMIT Psychiatry & Neurology Psychiatry; ATTEND Psychiatry & Neurology Psychiatry
DX: F43.25 Adjustment disorder with mixed disturbance of emotions and conduct (principal); R45.851 Suicidal ideations; R45.850 Homicidal ideations; F31.81 Bipolar II disorder; I10 Essential (primary) hypertension; F60.3 Borderline personality disorder; F43.10 Post-traumatic stress disorder, unspecified; F41.0 Panic disorder [episodic paroxysmal anxiety]; Z72.0 Tobacco use; Z91.14 Patient's other noncompliance with medication regimen
CPT/HCPCS: 80048; 80053; 80061; 80307; 83036; 85025; Q0163

== ENCOUNTER 2016-11-20 10:15 | Emergency (ER) | payer OTHER ==
[~2016-11-20] VITALS: Ht 175.3 cm; Wt 120.0 kg
[~2016-11-20 10:15] MED LIST changes: +ASPI81CH25 CHEW; +ATEN50TA PO; -CYCL1TAB29 PO; +HYDR-3366 PO; -HYDR-3534 PO; +INVE6TAB3 PO; +LAMO100 PO; +LAMO25 PO; +METH500T3 PO; +OXYC30TA PO; +[UNRECOGNIZED DRUG - OTHER]
[2016-11-20 10:20] VITALS: BP 133/76; PULSE 84; RESP 16; TEMP 98.3; O2SAT 97
--- NOTE | 2016-11-20 10:41 | PD ---
HPI Chief Complaint: Complaint Time Seen by Provider: 10:32 Travel History International Travel<30 days: No Contact w/Intl Traveler<30days: No Traveled to known affect area: No History of Present Illness HPI 35yo M with PMH of nephrolithiasis and renal cyst as per patient presents to the ED with c/o bilateral flank pain, dysuria, pressure when urinating for 1.5 days. +Nausea. Denies any fever, chest pain, sob, vomiting, abdominal pain, hematuria, testicular pain, penile discharge, focal weakness or numbness. As per our record, pt has bipolar disorder and borderline personality. No CTa/p was done in our records. PFSH Past Medical History Hx Anticoagulant Therapy: Yes (asa 81mg) Anxiety: Yes Cancer: No Cardiovascular Problems: Yes (htn on meds) Congestive Heart Failure: Yes Diabetes: No Diminished Hearing: No Endocrine: No Genitourinary: No Hypertension: Yes Immune Disorder: No Musculoskeletal: Yes (DDD) Neurologic: No Psychiatric: Yes Respiratory: Yes (chf) Past Surgical History Tonsillectomy: Yes Social History Alcohol Use: No Tobacco Use: Yes ("SOMETIMES") Substance Use: No Allergies-Medications (Allergen,Severity, Reaction): Coded Allergies: No Known Allergies (Unverified , 11/17/16) Reported Meds & Prescriptions Reported Meds & Active Scripts Active Methocarbamol 500 Mg Tab 500 Mg PO QID Invega (Paliperidone ER) 6 Mg Tab 6 Mg PO DAILY Lamictal (Lamotrigine) 25 Mg Tab 25 Mg PO BID Atenolol 50 Mg Tab 50 Mg PO DAILY Aspirin Low Strength (Aspirin) 81 Mg Chew 81 Mg CHEW DAILY Reported Lisinopril-Hctz 20-12.5 Mg Tab 1 Tab PO DAILY Review of Systems Except as stated in HPI: all other systems reviewed are Neg Physical Exam Narrative GENERAL: 35yo M not in distress. SKIN: Focused skin assessment warm/dry. HEAD: Atraumatic. Normocephalic. CARDIOVASCULAR: Regular rate and rhythm. No murmur appreciated. RESPIRATORY: No accessory muscle use. Clear to auscultation. Breath sounds equal bilaterally. GASTROINTESTINAL: Abdomen soft, mild ttp suprapubic region. No rebound tenderness or guarding. BACK: +TTP left CVA > right. MUSCULOSKELETAL: No obvious deformities. No clubbing. No cyanosis. No edema. NEUROLOGICAL: Awake and alert. No obvious cranial nerve deficits. Motor grossly within normal limits. Normal speech. PSYCHIATRIC: Appropriate mood and affect; insight and judgment normal.3 Data Data Last Documented VS Vital Signs Date Time Temp Pulse Resp B/P Pulse Ox O2 Delivery O2 Flow Rate FiO2 11/20/16 12:20 80 16 96 11/20/16 10:20 98.3 133/76 Orders Basic Metabolic Panel (Bmp) (11/20/16 10:37) Complete Blood Count With Diff (11/20/16 10:37) Lipase (11/20/16 10:37) Urinalysis - C+S If Indicated (11/20/16 10:37) Ct Abd/Pel W/O Iv Contrast (11/20/16 10:37) Ondansetron Inj (Zofran Inj) (11/20/16 10:45) Ketorolac Inj (Toradol Inj) (11/20/16 10:45) Labs Laboratory Tests Test 11/20/16 10:50 White Blood Count 6.9 TH/MM3 Red Blood Count 4.61 MIL/MM3 Hemoglobin 13.1 GM/DL Hematocrit 39.8 % Mean Corpuscular Volume 86.3 FL Mean Corpuscular Hemoglobin 28.4 PG Mean Corpuscular Hemoglobin 32.9 % Concent Red Cell Distribution Width 14.5 % Platelet Count 276 TH/MM3 Mean Platelet Volume 7.0 FL Neutrophils (%) (Auto) 68.5 % Lymphocytes (%) (Auto) 21.5 % Monocytes (%) (Auto) 8.2 % Eosinophils (%) (Auto) 1.2 % Basophils (%) (Auto) 0.6 % Neutrophils # (Auto) 4.7 TH/MM3 Lymphocytes # (Auto) 1.5 TH/MM3 Monocytes # (Auto) 0.6 TH/MM3 Eosinophils # (Auto) 0.1 TH/MM3 Basophils # (Auto) 0.0 TH/MM3 CBC Comment DIFF FINAL Differential Comment Urine Collection Type CLEAN CATCH Urine Color YELLOW Urine Turbidity SLIGHT Urine pH 5.5 Urine Specific [place] 1.019 Urine Protein NEG mg/dL Urine Glucose (UA) NEG mg/dL Urine Ketones NEG mg/dL Urine Occult Blood LARGE Urine Nitrite NEG Urine Bilirubin NEG Urine Leukocyte Esterase NEG Urine RBC 100-200 /hpf Urine WBC 0-2 /hpf Urine Squamous Epithelial 0-5 /hpf Cells Microscopic Urinalysis Comment CULT NOT INDICATED Urine Collection Time 10:50 Sodium Level 140 MEQ/L Potassium Level 4.4 MEQ/L Chloride Level 107 MEQ/L Carbon Dioxide Level 26.1 MEQ/L Anion Gap 7 MEQ/L Blood Urea Nitrogen 15 MG/DL Creatinine 1.10 MG/DL Estimat Glomerular Filtration 76 ML/MIN Rate Random Glucose 101 MG/DL Calcium Level 8.5 MG/DL Lipase 192 U/L [facility] Medical Decision Making Medical Screen Exam Complete: Yes Emergency Medical Condition: Yes Differential Diagnosis Nephrolithiasis vs. pyelonephritis vs. UTI vs. cystitis Narrative Course 35yo M presents to the ED with bilateral flank pain and pressure when he urinates. Labs reviewed, no leukocytosis. Creatinine normal. UA showed large blood. No leukocyte or nitrite. CT a/p showed normal examination. Pt may have had a kidney stone that passed. Pt given toradol and zofran which helped with pain and nausea. Pt is nontoxic appearing. Will have pt follow up with PMD as outpatient. Diagnosis Primary Impression: Hematuria Qualified Code: R31.9 - Hematuria, unspecified type Referrals: Tomas Houston MD as needed Hematuria Patient Instructions: General Instructions Departure Forms: Tests/Procedures Additional Instructions: Please follow up with urology clinic as needed. Return to the ED if symptoms worsen. Med/Other Pt SpecificInfo: Prescription(s) given Scripts Ibuprofen 600 Mg [id number] Mg PO Q6H PRN (Pain/Inflammation) #20 TAB Ref 0 Prov:Mai Singleton DO 11/20/16 Disposition: 01 DISCHARGE HOME Condition: Stable Mai Singleton DO Nov 20, 2016 10:41
[2016-11-20] MEDS ORDERED: LISI20TA PO (10:43)
[2016-11-20] MEDS ORDERED: KETOROLAC TROMETHAMINE 30 MG/ML (IVP) VIAL IVP ONE (10:45)
[2016-11-20] MEDS ORDERED: ONDANSETRON HCL 4 MG/2 ML VIAL IVP ONE (10:45)
[2016-11-20 10:55] LABS: AUTOMATED NEUTROPHIL # 4.7 TH/MM3 (1.8-7.7); BASOPHIL % 0.6 % (0.0-2.0); BLOOD, URINE LARGE (NEG); EOSINOPHIL # 0.1 TH/MM3 (0-0.4); EOSINOPHIL % 1.2 % (0.0-4.0); GLUCOSE,URINE NEG (NEG); HEMATOCRIT 39.8 % (39.0-51.0); HEMO FLAGS DIFF FINAL; KETONE, URINE NEG (NEG); LYMPH % 21.5 % (9.0-44.0); LYMPHOCYTE # 1.5 TH/MM3 (1.0-4.8); MEAN CELL VOLUME 86.3 FL (80.0-100.0); MEAN CORPUSCULAR HEMOGLOBIN 28.4 PG (27.0-34.0); MEAN CORPUSCULAR HGB CONC 32.9 % (32.0-36.0); MONO % 8.2 % (0.0-8.0); NEUT % 68.5 % (16.0-70.0); NITRITE,URINE NEG (NEG); PH, URINE 5.5 (5.0-8.5); PLATELET COUNT 276 TH/MM3 (150-450); RED BLOOD COUNT 4.61 MIL/MM3 (4.50-5.90); RED CELL DISTRIBUTION WIDTH 14.5 % (11.6-17.2); WHITE BLOOD COUNT 6.9 TH/MM3 (4.0-11.0)
[2016-11-20 11:00] LABS: COMMENT (UR) CULT NOT INDICATED; CULTURE IF INDICATED CULT NOT INDICATED; METHOD OF COLLECTION CLEAN CATCH; RBC, URINE 100-200 /hpf (0-3); SQUAMOUS EPITHELIAL CELL URINE 0-5 /hpf (0-5); URINE COLOR YELLOW (YELLW/STRAW); WBC, URINE 0-2 /hpf (0-5)
[2016-11-20 11:03] LABS: POTASSIUM 4.4 MEQ/L (3.5-5.1)
[2016-11-20 11:07] LABS: BICARBONATE 26.1 MEQ/L (21.0-32.0)
--- NOTE | 2016-11-20 11:55 | RADRPT ---
EXAM DATE/TIME: 11/20/2016 11:10 [place] COMPARISON: No previous studies available for comparison. INDICATIONS : Bilateral flank pain, pressure and burning with urination. ORAL CONTRAST: No oral contrast ingested. RADIATION DOSE: 27.95 CTDIvol (mGy) MEDICAL HISTORY : Renal calculi. Cardiovascular disease Spinal stenosis.Renal cysts, hypertension. SURGICAL HISTORY : None. ENCOUNTER: Initial ACUITY: 2 days PAIN SCALE: 4/10 LOCATION: Bilateral flank TECHNIQUE: Volumetric scanning of the abdomen and pelvis was performed. Using automated exposure control and ad justment of the mA and/or kV according to patient size, radiation dose was kept as low as reasonably achievable to obtain optimal diagnostic quality images. DICOM format image data is available electro nically for review and comparison. FINDINGS: LOWER LUNGS: The visualized lower lungs are clear. LIVER: Homogeneous density without lesion. There is no dilation of the biliary tree. No calcified gallston es. SPLEEN: Normal size without lesion. PANCREAS: Within normal limits. KIDNEYS: Normal in size and shape. There is no mass, stone, or hydronephrosis. ADRENAL GLANDS: Within normal limits. VASCULAR: There is no aortic aneurysm. BOWEL/MESENTERY: The stomach, small bowel, and colon demonstrate no acute abnormality. There is no free intraperitone al air or fluid. ABDOMINAL WALL: Within normal limits. RETROPERITONEUM: There is no lymphadenopathy. BLADDER: No wall thickening or mass. REPRODUCTIVE: Within normal limits. INGUINAL: There is no lymphadenopathy or hernia. MUSCULOSKELETAL: Within normal limits for patient age. CONCLUSION: Normal examination. Morgan Irby MD on November 20, 2016 at 11:53 Board Certified Radiologist. This report was verified electronically.
[2016-11-20] MEDS ORDERED: IBUP-232 PO (12:30)
== END 2016-11-20 12:35 | disposition home or self-care (01) ==
LOC: PHED 10:15
DX: R31.9 Hematuria, unspecified (principal); R30.0 Dysuria; R10.9 Unspecified abdominal pain; R11.0 Nausea; I10 Essential (primary) hypertension; Z72.0 Tobacco use; Z79.82 Long term (current) use of aspirin; Z86.59 Personal history of other mental and behavioral disorders; Z86.79 Personal history of other diseases of the circulatory system; Z87.39 Personal history of other diseases of the musculoskeletal system and connective tissue
CPT/HCPCS: 74176; 80048; 81001; 83690; 85025; 96374; 96375; 99285; J1885; J2405

== ENCOUNTER 2017-02-10 13:07 | Emergency (ER) | payer MEDICAID ==
[~2017-02-10] VITALS: Ht 175.3 cm; Wt 116.0 kg
[~2017-02-10 13:07] MED LIST changes: +ANUS25SU RECTAL; -HYDR-3366 PO; -LAMO100 PO; -LISI-515 PO; +LISI20TA PO; -LISI40TA PO; -OXYC30TA PO; -[UNRECOGNIZED DRUG - OTHER]
[2017-02-10 13:22] VITALS: BP 136/75; PULSE 95; RESP 16; TEMP 98.6; O2SAT 96
--- NOTE | 2017-02-10 13:51 | PD ---
HPI Chief Complaint: Medication Refill Request Time Seen by Provider: 13:28 Travel History International Travel<30 days: No Contact w/Intl Traveler<30days: No Traveled to known affect area: No History of Present Illness HPI 36-year-old male presents to the emergency room requesting medication refill of Wellbutrin. Patient states he was admitted to the psychiatric unit for 1 week in November and started on Wellbutrin. He was discharged with one month prescription and told to follow up with a primary care physician upon discharge. He has not followed up with PCP or the psychiatrist because he could not afford one. States his insurance will only pay for emergency room visits and certain prescriptions. Patient reportedly ran out of his medication about one week ago. PFSH Past Medical History Hx Anticoagulant Therapy: Yes (asa 81mg) Anxiety: Yes Cancer: No Cardiovascular Problems: Yes (htn on meds) Congestive Heart Failure: Yes Diabetes: No Diminished Hearing: No Endocrine: No Gastrointestinal Disorders: No Genitourinary: No Hypertension: Yes Immune Disorder: No Implanted Vascular Access Dvce: No Musculoskeletal: Yes (DDD) Neurologic: No Psychiatric: Yes Respiratory: Yes (chf) Past Surgical History Tonsillectomy: Yes Social History Alcohol Use: No Tobacco Use: Yes (chewing tobacco) Substance Use: No Allergies-Medications (Allergen,Severity, Reaction): Coded Allergies: No Known Allergies (Unverified , 02/10/17) Reported Meds & Prescriptions Reported Meds & Active Scripts Active Anusol-Hc Supp (Hydrocortisone Supp) 25 Mg Supp 25 Mg RECTAL BID 10 Days Methocarbamol 500 Mg Tab 500 Mg PO QID Invega (Paliperidone ER) 6 Mg Tab 6 Mg PO DAILY Lamictal (Lamotrigine) 25 Mg Tab 25 Mg PO BID Atenolol 50 Mg Tab 50 Mg PO DAILY Aspirin Low Strength (Aspirin) 81 Mg Chew 81 Mg CHEW DAILY Reported Lisinopril-Hctz 20-12.5 Mg Tab 1 Tab PO DAILY Review of Systems Except as stated in HPI: all other systems reviewed are Neg Physical Exam Narrative GENERAL: Well-nourished, well-developed male in no acute distress. Afebrile. Ambulatory. SKIN: Focused skin assessment warm/dry. HEAD: Normocephalic. EYES: No scleral icterus. No injection or drainage. NECK: Supple, trachea midline. No JVD or lymphadenopathy. CARDIOVASCULAR: Regular rate and rhythm without murmurs, gallops, or rubs. RESPIRATORY: Breath sounds equal bilaterally. No accessory muscle use. PSYCHIATRIC: No delusional thought processes. No hallucinations. Data Data Last Documented VS Vital Signs Date Time Temp Pulse Resp B/P (MAP) Pulse Ox O2 Delivery O2 Flow Rate FiO2 02/10/17 13:22 98.6 95 16 136/75 (95) 96 MDM Medical Decision Making Medical Screen Exam Complete: Yes Emergency Medical Condition: No Medical Record Reviewed: Yes Differential Diagnosis Medication refill Narrative Course 36-year-old male presents to the emergency room requesting medication refill of Wellbutrin. Patient states he has been out of his medication for one week. Patient initially told triage that he needed a refill of his blood pressure medication but changed his story upon my evaluation. He states he has been out of his Wellbutrin for 1 week but was only given a one-month prescription upon discharge from the hospital in November. If this is true, he has not been taking medication as prescribed. Electronic medical record could not corroborate his story (i.e. there was no documentation of previous Wellbutrin prescription). Patient has presented multiple times for medication refills. He was kindly informed that the emergency room does not prescribe routine medications because there is no ability for follow-up. He was given the name of [facility] for continued care. Patient became cantankerous upon discharge and left prior to being given handout including [facility] number. A medical screening exam was performed: At the time of evaluation the presenting medical condition was determined not to be of an emergent nature. The patient was given the option of receiving additional care, but declined. Patient was given options for additional community resources from which to obtain care. The Patient Has Been advised to seek medical attention for their presenting complaint. The patient has been advised to return to the ER at any time if an emergent condition develops. Diagnosis Primary Impression: Encounter for medical screening examination Disposition: 01 DISCHARGE HOME Condition: Stable Carey Sahni Feb 10, 2017 13:51
== END 2017-02-10 13:40 | disposition left against medical advice (07) ==
LOC: PHEFT 13:07
DX: Z76.0 Encounter for issue of repeat prescription (principal)
CPT/HCPCS: 99281

== ENCOUNTER 2017-03-01 12:45 | Observation (INO) | payer MEDICAID ==
[~2017-03-01] VITALS: Ht 175.3 cm; Wt 119.3 kg
--- NOTE | 2017-03-01 12:51 | PD ---
HPI Chief Complaint: chest pain Time Seen by Provider: 12:51 Travel History International Travel<30 days: No Contact w/Intl Traveler<30days: No Traveled to known affect area: No History of Present Illness HPI 36-year-old male came to the emergency room with history of left-sided chest pain which is in the form of a pressure and is 6 out of 10 that started 20 minutes ago. He is non-radiational. No aggravating or relieving factors. No associated shortness of breath, lightheadedness, dizziness or syncopal episode. Patient says that he had chest pain in the past and had a stress test done more than a year ago which was negative. Vital signs are stable. Patient took 1 sublingual nitroglycerin of his own. PFSH Past Medical History Narrative Medical List of his past medical, surgical, social and family history is reviewed from the nursing note. Hx Anticoagulant Therapy: Yes (asa 81mg) Anxiety: Yes Cancer: No Cardiovascular Problems: Yes (htn on meds) Congestive Heart Failure: Yes Diabetes: No Diminished Hearing: No Endocrine: No Gastrointestinal Disorders: No Genitourinary: No Hypertension: Yes Immune Disorder: No Implanted Vascular Access Dvce: No Musculoskeletal: Yes (DDD) Neurologic: No Psychiatric: Yes Respiratory: Yes (chf) Past Surgical History Tonsillectomy: Yes Social History Alcohol Use: No Tobacco Use: Yes (chewing tobacco) Substance Use: No Allergies-Medications (Allergen,Severity, Reaction): Coded Allergies: No Known Allergies (Unverified , 02/10/17) Comments No known drug allergies. Reported Meds & Prescriptions Reported Meds & Active Scripts Active Anusol-Hc Supp (Hydrocortisone Supp) 25 Mg Supp 25 Mg RECTAL BID 10 Days Methocarbamol 500 Mg Tab 500 Mg PO QID Invega (Paliperidone ER) 6 Mg Tab 6 Mg PO DAILY Lamictal (Lamotrigine) 25 Mg Tab 25 Mg PO BID Atenolol 50 Mg Tab 50 Mg PO DAILY Aspirin Low Strength (Aspirin) 81 Mg Chew 81 Mg CHEW DAILY Reported Lisinopril-Hctz 20-12.5 Mg Tab 1 Tab PO DAILY Narrative Medication List of his home medications reviewed from the nursing note. Review of Systems Except as stated in HPI: all other systems reviewed are Neg Physical Exam Narrative GENERAL: Awake, alert, mild distress, obese SKIN: Focused skin assessment warm/dry. HEAD: Atraumatic. Normocephalic. EYES: Pupils equal and round. No scleral icterus. No injection or drainage. ENT: No nasal bleeding or discharge. Mucous membranes pink and moist. NECK: Trachea midline. No JVD. CARDIOVASCULAR: Regular rate and rhythm. No murmur appreciated. RESPIRATORY: No accessory muscle use. Clear to auscultation. Breath sounds equal bilaterally. GASTROINTESTINAL: Abdomen soft, non-tender, nondistended. Hepatic and splenic margins not palpable. MUSCULOSKELETAL: No obvious deformities. No clubbing. No cyanosis. No edema. NEUROLOGICAL: Awake and alert. No obvious cranial nerve deficits. Motor grossly within normal limits. Normal speech. PSYCHIATRIC: Appropriate mood and affect; insight and judgment normal. Data Data Last Documented VS Vital Signs Date Time Temp Pulse Resp B/P (MAP) Pulse Ox O2 Delivery O2 Flow Rate FiO2 03/01/17 12:59 96 Room Air 03/01/17 12:57 82 16 03/01/17 12:53 99.2 130/84 (99) Orders Orders Electrocardiogram (03/01/17 12:56) Basic Metabolic Panel (Bmp) (03/01/17 12:56) Ckmb (Isoenzyme) Profile (03/01/17 12:56) Complete Blood Count With Diff (03/01/17 12:56) Magnesium (Mg) (03/01/17 12:56) Prothrombin Time / Inr (Pt) (03/01/17 12:56) Act Partial Throm Time (Ptt) (03/01/17 12:56) Troponin I (03/01/17 12:56) Chest, Single Ap (03/01/17 12:56) Ecg Monitoring (03/01/17 12:56) Bilateral Bp Monitoring (03/01/17 12:56) Iv Access Insert/Monitor (03/01/17 12:56) Oximetry (03/01/17 12:56) Oxygen Administration (03/01/17 12:56) Aspirin Chew (Aspirin Chew) (03/01/17 13:00) Sodium Chloride 0.9% Flush (Ns Flush) (03/01/17 13:00) Admit Order (Ed Use Only) (03/01/17 13:54) Labs Laboratory Tests Test 03/01/17 13:00 White Blood Count 6.6 TH/MM3 Red Blood Count 4.66 MIL/MM3 Hemoglobin 13.4 GM/DL Hematocrit 40.1 % Mean Corpuscular Volume 86.1 FL Mean Corpuscular Hemoglobin 28.8 PG Mean Corpuscular Hemoglobin Concent 33.5 % Red Cell Distribution Width 13.8 % Platelet Count 316 TH/MM3 Mean Platelet Volume 7.2 FL Neutrophils (%) (Auto) 62.4 % Lymphocytes (%) (Auto) 27.9 % Monocytes (%) (Auto) 8.0 % Eosinophils (%) (Auto) 1.1 % Basophils (%) (Auto) 0.6 % Neutrophils # (Auto) 4.1 TH/MM3 Lymphocytes # (Auto) 1.8 TH/MM3 Monocytes # (Auto) 0.5 TH/MM3 Eosinophils # (Auto) 0.1 TH/MM3 Basophils # (Auto) 0.0 TH/MM3 CBC Comment DIFF FINAL Differential Comment Prothrombin Time 10.5 SEC Prothromb Time International Ratio 1.0 RATIO Activated Partial Thromboplast Time 24.9 SEC Blood Urea Nitrogen 14 MG/DL Creatinine 1.01 MG/DL Random Glucose 92 MG/DL Calcium Level 8.7 MG/DL Magnesium Level 1.8 MG/DL Sodium Level 140 MEQ/L Potassium Level 4.1 MEQ/L Chloride Level 106 MEQ/L Carbon Dioxide Level 28.5 MEQ/L Anion Gap 6 MEQ/L Estimat Glomerular Filtration Rate 84 ML/MIN Total Creatine Kinase 80 U/L Troponin I LESS THAN 0.02 NG/ML MDM Medical Decision Making Medical Screen Exam Complete: Yes Emergency Medical Condition: Yes Medical Record Reviewed: Yes Interpretation(s) Twelve-lead EKG was reviewed by me. Normal sinus rhythm, left axis deviation, nonspecific ST-T wave changes. Heart rate of 87 bpm. Differential Diagnosis ACS, non-STEMI, nonspecific chest pain Narrative Course 1:57 PM blood test results of back and within acceptable limits. Patient was given 2 baby aspirin's to chew. I would like to admit him to the chest pain center to be seen by the cardiologists and ruled out. Procedures EKG Prior to Arrival: No Diagnosis Primary Impression: chest pain Admitting Information Admitting Physician Requests: Observation Antoni Quarles MD Mar 01, 2017 12:51
[2017-03-01 12:53] VITALS: BP 130/84; PULSE 85; RESP 18; TEMP 99.2; O2SAT 96
[2017-03-01 12:59] VITALS: O2SAT 96
[2017-03-01] MEDS ORDERED: SODIUM CHLORIDE 0.9% FLUSH 10 ML FLUSH IVF PRN (13:00)
[2017-03-01] MEDS ORDERED: ASPIRIN 81 MG CHEW TAB PO ONE (13:00)
[2017-03-01 13:22] LABS: AUTOMATED NEUTROPHIL # 4.1 TH/MM3 (1.8-7.7); BASOPHIL % 0.6 % (0.0-2.0); EOSINOPHIL # 0.1 TH/MM3 (0-0.4); EOSINOPHIL % 1.1 % (0.0-4.0); HEMATOCRIT 40.1 % (39.0-51.0); HEMO FLAGS DIFF FINAL; LYMPH % 27.9 % (9.0-44.0); LYMPHOCYTE # 1.8 TH/MM3 (1.0-4.8); MEAN CELL VOLUME 86.1 FL (80.0-100.0); MEAN CORPUSCULAR HEMOGLOBIN 28.8 PG (27.0-34.0); MEAN CORPUSCULAR HGB CONC 33.5 % (32.0-36.0); NEUT % 62.4 % (16.0-70.0); PLATELET COUNT 316 TH/MM3 (150-450); RED BLOOD COUNT 4.66 MIL/MM3 (4.50-5.90); RED CELL DISTRIBUTION WIDTH 13.8 % (11.6-17.2); WHITE BLOOD COUNT 6.6 TH/MM3 (4.0-11.0)
--- NOTE | 2017-03-01 13:23 | RADRPT ---
EXAM DATE/TIME: 03/01/2017 13:13 [facility] COMPARISON: CHEST PA & LAT, November 02, 2016, 13:32. INDICATIONS : Chest pain. MEDICAL HISTORY : Congestive heart failure. Hypertension SURGICAL HISTORY : Tonsillectomy. Right wrist. ENCOUNTER: Initial ACUITY: 1 day PAIN SCORE: 7/10 LOCATION: Bilateral chest FINDINGS: A single view of the chest demonstrates the lungs to be symmetrically aerated without evidence of mas s, infiltrate or effusion. The cardiomediastinal contours are unremarkable. Osseous structures are intact. CONCLUSION: No acute disease. No significant change has occurred. Amandeep Hamilton MD on March 01, 2017 at 13:21 Board Certified Radiologist. This report was verified electronically.
[2017-03-01 13:30] LABS: ANION GAP 6 MEQ/L (5-15); APTT (PATIENT) 24.9 SEC (24.3-30.1); BICARBONATE 28.5 MEQ/L (21.0-32.0); BLOOD UREA NITROGEN 14 MG/DL (7-18); CHLORIDE 106 MEQ/L (98-107); GLOMERULAR FILTRATION RATE 84 ML/MIN (>89); MAGNESIUM 1.8 MG/DL (1.5-2.5); POTASSIUM 4.1 MEQ/L (3.5-5.1); PROTHROMBIN TIME - PATIENT 10.5 SEC (9.8-11.6); SODIUM (NA) 140 MEQ/L (136-145)
[2017-03-01 13:34] LABS: CREATINE KINASE 80 U/L (39-308)
[2017-03-01 14:03] VITALS: BP 129/79; PULSE 77; RESP 18; O2SAT 98
[2017-03-01] MEDS ORDERED: ONDANSETRON HCL 4 MG/2 ML VIAL IV PUSH PRN (15:00)
[2017-03-01] MEDS ORDERED: PANTOPRAZOLE SOD 40 MG DELAYED RELEASE TAB PO SCH (15:00)
[2017-03-01] MEDS ORDERED: ALUMINUM/MAGNESIUM/SIMETH 30 ML CUP PO ONE (15:00)
[2017-03-01] MEDS ORDERED: ATROPINE/SCOPOLAM/HYOSCYAM/PB ELIXIR 10 ML CUP PO ONE (15:00)
[2017-03-01] MEDS ORDERED: ACETAMINOPHEN 500 MG CPLT PO PRN (15:00)
[2017-03-01] MEDS ORDERED: ACETAMINOPHEN/HYDROcodone 325 MG/7.5 MG TAB PO PRN (15:00)
[2017-03-01] MEDS ORDERED: LIDOCAINE VISCOUS 2% SOLN 15 ML UDC PO ONE (15:00)
[2017-03-01] MEDS ORDERED: SODIUM CHLORIDE 0.9% FLUSH 5 ML FLUSH IVF PRN (15:00)
--- NOTE | 2017-03-01 15:03 | HHI.HP ---
[facility] Primary Care Physician Adonay Francisco MD Chief Complaint Chest pain History of Present Illness This is a 36-year-old male that presents to ED via private vehicle with complaint of chest discomfort. Patient states that he had just finished playing basketball with his 2 children and was walking back to his house when he developed a squeezing sensation the center/left side of his chest. This began around 12:30. States he took subluminal nitroglycerin 2 which didn't help his symptoms became a headache. States he was given that he was prescribed nitroglycerin in 2010 when he was diagnosed with congestive heart for. Patient states he was told he had a low ejection fraction via a 2-D echo. States his never had a stress test or cardiac catheterization. He was short of breath, diaphoretic, and nauseated with the symptoms. The discomfort is still there at this time but not as intense. The discomfort at this point is been there for 2-1/2 hours. He has found nothing to worsen or improve it. He also has history of hypertension but states his primary care physician in [place] discontinued this medications 3 days ago. He states that he'll be moving back to [place] at the end of this month. Review of Systems General: Patient denies fevers, chills recent, and recent travel HEENT: Patient denies headache, sore throat, difficulty swallowing. Cardiovascular: Has the chest discomfort as mentioned above. Denies sensation of heart beating rapidly or irregularly. No syncope. He was diaphoretic. Respiratory: He was short of breath. Denies inspirational chest discomfort. Denies coughing wheezing or hemoptysis. GI: He was nauseous without emesis. Patient denies diarrhea, abdominal pain, bloody stools. Musculoskeletal: Patient denies joint pain or edema. Denies calf pain or edema. Neurovascular: Patient denies numbness, tingling, weakness in extremities. Denies headache. Endocrine: Denies polyuria and polydipsia. Hematologic: Denies easy bruising. Skin: Denies rash or itching. Past Family Social History Allergies: Coded Allergies: No Known Allergies (Unverified , 02/10/17) Past Medical History Hypertension how her medications discontinued 3 days ago in [place]. Bipolar disorder. Stated history of congestive heart failure, states his EF was 40% in 2010. Denies hyperlipidemia, diabetes, and CAD. Past history tobacco abuse but quit smoking 1 year ago after smoking 2 packs of cigarettes daily for 25 years. Reported Medications Reported Meds & Active Scripts Active Anusol-Hc Supp (Hydrocortisone Supp) 25 Mg Supp 25 Mg RECTAL BID 10 Days Methocarbamol 500 Mg Tab 500 Mg PO QID Invega (Paliperidone ER) 6 Mg Tab 6 Mg PO DAILY Lamictal (Lamotrigine) 25 Mg Tab 25 Mg PO BID Atenolol 50 Mg Tab 50 Mg PO DAILY Aspirin Low Strength (Aspirin) 81 Mg Chew 81 Mg CHEW DAILY Reported Lisinopril-Hctz 20-12.5 Mg Tab 1 Tab PO DAILY Active Ordered Medications Current Medications Medications (Trade) Dose Ordered Sig/Joanie Route Start Time Stop Time Status Last Admin (NS Flush) 2 ml UNSCH PRN IVF 03/01/17 13:00 (Xylocaine 2% Viscous) 10 ml STAT ONCE PO 03/01/17 15:00 03/01/17 15:01 UNV ( Liq) 10 ml NOW ONCE PO 03/01/17 15:00 03/01/17 15:01 UNV (Mag-Al Plus Susp Liq) 30 ml STAT ONCE PO 03/01/17 15:00 03/01/17 15:01 UNV Family History States that his mother had an [place] at age 42 and needed a bypass. Social History Patient quit smoking 1 year ago but prior to that he smoked 2 packs of cigarettes daily for 25 years. Denies alcohol or illicit drugs. 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 Physical Exam Vital Signs Vital Signs Date Time Temp Pulse Resp B/P (MAP) Pulse Ox O2 Delivery O2 Flow Rate FiO2 03/01/17 14:03 77 18 129/79 (96) 98 Room Air 03/01/17 12:59 96 Room Air 03/01/17 12:59 96 Room Air 03/01/17 12:57 82 16 96 Room Air 03/01/17 12:53 99.2 85 18 130/84 (99) 96 Physical Exam GENERAL: This is a well-nourished, well-developed patient, in no apparent distress. Patient speaks in clear complete sentences. Patient is pleasant. HEENT: Head is atraumatic and normocephalic. Neck is supple without lymphadenopathy and trachea is midline. No JVD or carotid bruits. CARDIOVASCULAR: Regular rate and rhythm without murmurs, gallops, or rubs. RESPIRATORY: Clear to auscultation. Breath sounds equal bilaterally. No wheezes , rales, or rhonchi. Chest wall is nontender. No use of accessory muscles. GASTROINTESTINAL: Abdomen is nontender, nondistended. Abdomen soft. No obvious pulsatile mass or bruit. No CVA tenderness. Strong femoral pulses bilaterally. Normal bowel sounds in all quadrants. MUSCULOSKELETAL: Patient is moving upper and lower extremities freely. No calf tenderness or edema, no Homans sign. Strong pulses in upper and lower extremities. NEUROLOGICAL: Patient is alert and oriented. Cranial nerves 2-12 are grossly intact. No focal deficits and speech is clear. SKIN: No rash and turgor is normal. Laboratory Laboratory Tests Test 03/01/17 13:00 White Blood Count 6.6 Red Blood Count 4.66 Hemoglobin 13.4 Hematocrit 40.1 Mean Corpuscular Volume 86.1 Mean Corpuscular Hemoglobin 28.8 Mean Corpuscular Hemoglobin Concent 33.5 Red Cell Distribution Width 13.8 Platelet Count 316 Mean Platelet Volume 7.2 Neutrophils (%) (Auto) 62.4 Lymphocytes (%) (Auto) 27.9 Monocytes (%) (Auto) 8.0 Eosinophils (%) (Auto) 1.1 Basophils (%) (Auto) 0.6 Neutrophils # (Auto) 4.1 Lymphocytes # (Auto) 1.8 Monocytes # (Auto) 0.5 Eosinophils # (Auto) 0.1 Basophils # (Auto) 0.0 CBC Comment DIFF FINAL Differential Comment Prothrombin Time 10.5 Prothromb Time International Ratio 1.0 Activated Partial Thromboplast Time 24.9 Blood Urea Nitrogen 14 Creatinine 1.01 Random Glucose 92 Calcium Level 8.7 Magnesium Level 1.8 Sodium Level 140 Potassium Level 4.1 Chloride Level 106 Carbon Dioxide Level 28.5 Anion Gap 6 Estimat Glomerular Filtration Rate 84 Total Creatine Kinase 80 Troponin I LESS THAN 0.02 Result Diagram: 03/01/17 1300 03/01/17 1300 Imaging Last 48 hours Impressions Chest X-Ray 03/01/17 1256 Signed Impressions: Service Date/Time: Wednesday, March 01, 2017 13:13 - CONCLUSION: No acute disease. No significant change has occurred. Amandeep Hamilton MD Course Initial EKG is sinus rhythm with right bundle branch block without significant ST segment depressions or elevations. Caprini VTE Risk Assessment Caprini VTE Risk Assessment: No/Low Risk (score <= 1) Caprini Risk Assessment Model Point Value = 1 Point Value = 2 Point Value = 3 Point Value = 5 Age 41-60 Minor surgery BMI > 25 kg/m2 Swollen legs Varicose veins or History of unexplained or recurrent spontaneous Oral contraceptives or hormone replacement Sepsis (< 1 month) Serious lung disease, including pneumonia (< 1 month) Abnormal pulmonary function Acute myocardial infarction Congestive heart failure (< 1 month) History of inflammatory bowel disease Medical patient at bed rest Age 61-74 Arthroscopic surgery Major open surgery (> 45 min) Laparoscopic surgery (> 45 min) Malignancy Confined to bed (> 72 hours) Immobilizing plaster cast Central venous access Age >= 75 History of VTE Family history of VTE Factor V Leiden Prothrombin [id number] Lupus anticoagulant Anticardiolipin antibodies Elevated serum homocysteine Heparin-induced thrombocytopenia Other congenital or acquired thrombophilia Stroke (< 1 month) Elective arthroplasty Hip, pelvis, or leg fracture Acute spinal cord injury (< 1 month) Prophylaxis Regimen Total Risk Factor Score Risk Level Prophylaxis Regimen 0-1 Low Early ambulation 2 Moderate Order ONE of the following: *Sequential Compression Device (SCD) *Heparin 5000 units SQ BID 3-4 Higher Order ONE of the following medications: *Heparin 5000 units SQ TID *Enoxaparin/Lovenox 40 mg SQ daily (WT < 150 kg, CrCl > 30 mL/min) *Enoxaparin/Lovenox 30 mg SQ daily (WT < 150 kg, CrCl > 10-29 mL/min) *Enoxaparin/Lovenox 30 mg SQ BID (WT < 150 kg, CrCl > 30 mL/min) AND/OR *Sequential Compression Device (SCD) 5 or more Highest Order ONE of the following medications: *Heparin 5000 units SQ TID (Preferred with Epidurals) *Enoxaparin/Lovenox 40 mg SQ daily (WT < 150 kg, CrCl > 30 mL/min) *Enoxaparin/Lovenox 30 mg SQ daily (WT < 150 kg, CrCl > 10-29 mL/min) *Enoxaparin/Lovenox 30 mg SQ BID (WT < 150 kg, CrCl > 30 mL/min) AND *Sequential Compression Device (SCD) Assessment and Plan Assessment and Plan * Chest pain: Patient will continue to have serial cardiac enzymes and EKGs for ruling out purposes. He will be seen by Dr. Hernandes of cardiology and the chest pain center and likely have a Lexiscan in the morning as he states he would not be able to go on the treadmill with his chronic back issues. If that is nonischemic she'll be discharged home with instructions to follow-up with PCP. States he has congestive heart failure with an EF of 40%. We will get EF with the stress test tomorrow. * Hypertension: States medications were discontinued 3 days ago in [place]. We will continue to monitor appear medications. Other follow-up with his PCP. * Bipolar disorder: Continue current medication. * Chronic back pain: Continue current medication. Patient is stable at this time. He is agreeable to this plan. Nnamdi Chaves Mar 01, 2017 15:03
[2017-03-01] MEDS ORDERED: SODIUM CHLORIDE 0.9% FLUSH 5 ML FLUSH IVF SCH (21:00)
[2017-03-02] MEDS ORDERED: ASPIRIN 325 MG TAB PO SCH (09:00)
--- NOTE | 2017-03-02 14:22 | EKG ---
Date Performed: 03/01/2017 Time Performed: 12:49:22 PTAGE: 36 years EKG: Sinus rhythm POSSIBLE LEFT ATRIAL ENLARGEMENT MARKED LEFT AXIS DEVIATION PATTERN CONSISTENT WITH PULMONARY DISEAS E RIGHT BUNDLE BRANCH BLOCK ABNORMAL ECG PREVIOUS TRACING : 01/10/2001 02.56 DOCTOR: Morgan Rocha Interpretating Date/Time 03/02/2017 14:17:21
== END 2017-03-01 15:38 | disposition left against medical advice (07) ==
LOC: NEPE 12:45 → NEDA 13:55
DX: R07.9 Chest pain, unspecified (principal); Z79.82 Long term (current) use of aspirin; F41.9 Anxiety disorder, unspecified; I50.9 Heart failure, unspecified; I11.0 Hypertensive heart disease with heart failure; F17.200 Nicotine dependence, unspecified, uncomplicated; Z79.899 Other long term (current) drug therapy; R61 Generalized hyperhidrosis; R11.0 Nausea; R06.02 Shortness of breath; I45.10 Unspecified right bundle-branch block; F31.9 Bipolar disorder, unspecified; G89.29 Other chronic pain; M54.9 Dorsalgia, unspecified
CPT/HCPCS: 71010; 80048; 82550; 83735; 84484; 85025; 85610; 85730; 93005; 99285; G0378

== ENCOUNTER 2017-04-26 11:32 | Observation (INO) | payer MEDICAID, OTHER ==
[2017-04-26] VITALS (10 sets, daily range): BP systolic 124–138; BP diastolic 72–91; PULSE 74–100; RESP 18–24; TEMP 98.4–98.7; O2SAT 94–97
[~2017-04-26 11:32] MED LIST changes: +ALPR.5 PO; +AMLO5 PO; +HYDR-4107 PO; +OXYC1CAP PO
[2017-04-26] MEDS ORDERED: BUPR150CR PO (12:15)
[2017-04-26] MEDS ORDERED: cloNIDine HCL 0.1 MG TAB PO PRN (14:45)
[2017-04-26] MEDS ORDERED: ACETAMINOPHEN/HYDROcodone 325 MG/7.5 MG TAB PO PRN (14:45)
[2017-04-26] MEDS ORDERED: ACETAMINOPHEN 500 MG CPLT PO PRN (14:45)
[2017-04-26] MEDS ORDERED: ONDANSETRON HCL 4 MG/2 ML VIAL IV PUSH PRN (14:45)
[2017-04-26] MEDS ORDERED: RESP: ALBUTEROL 2.5 MG/IPRATROPIUM 0.5 MG NEB (PRN) INH (14:45)
[2017-04-26] MEDS ORDERED: OXYC-396 PO (14:47)
[2017-04-26] MEDS ORDERED: HYDR-3583 PO (14:49)
--- NOTE | 2017-04-26 14:50 | HHI.HP ---
HPI Primary Care Physician No Primary Care Physician Chief Complaint Chest pain History of Present Illness This is a 36-year-old male with stated history of congestive heart failure, hypertension, and chronic back pain that presents to ED in [place] to evaluate chest discomfort. He was transferred to the chest pain center for further evaluation. He states that he developed a sharp squeezing chest discomfort in the center of his chest while he was moving boxes at work. He estimates the weight at about 30 pounds. About the same time he felt a tightness in his left arm, felt dizzy, short of breath, nauseous, and diaphoretic. Symptoms lasted 10 minutes but is still present at this time. . Cannot recall ever having a stress test. States he was evaluated at a hospital in [place] about a year ago for chest pain and a 2-D echo was obtained showing a heart function in the low 40s. He followed up with her completion supervisor for one visit and was put on a special diet. Has not had this reevaluated since. Today's episode is the first time he had chest discomfort since then. Review of Systems General: Patient denies fevers, chills recent, and recent travel HEENT: Patient denies headache, sore throat, difficulty swallowing. Cardiovascular: Has the chest discomfort as mentioned above. Denies sensation of heart beating rapidly or irregularly. No syncope. He was diaphoretic. Respiratory: He was short of breath. Denies or inspirational chest discomfort. Denies coughing wheezing or hemoptysis. GI: He was nauseous. Patient denies vomiting, diarrhea, abdominal pain, bloody stools. Musculoskeletal: Chronic back pain. Patient denies joint pain or edema. Denies calf pain or edema. Neurovascular: Patient denies numbness, tingling, weakness in extremities. Denies headache. Endocrine: Denies polyuria and polydipsia. Hematologic: Denies easy bruising. Skin: Denies rash or itching. Past Family Social History Allergies: Coded Allergies: No Known Allergies (Unverified Allergy, Unknown, 04/26/17) Past Medical History States history of congestive heart failure. Hypertension and hyperlipidemia however he takes no medication for hyperlipidemia. Chronic back pain. Denies diabetes and known CAD. Past Surgical History Right wrist tendon laceration repair. Reported Medications Reported Meds & Active Scripts Active Reported Wellbutrin SR 12 HR (Bupropion HCl) 150 Mg Tab 150 Mg PO Q12HR Hydrocodone-Acetaminophen 5-300 Mg Tab Unknown Dose PO Q4H PRN Xanax (Alprazolam) 0.5 Mg Tab 0.5 Mg PO BID Norvasc (Amlodipine Besylate) 5 Mg Tab 5 Mg PO DAILY Active Ordered Medications Current Medications Medications (Trade) Dose Ordered Sig/Joanie Route Start Time Stop Time Status Last Admin (Tylenol) 500 mg Q4H PRN PO 04/26/17 14:45 UNV ([place] 7.5-325 Mg) 1 tab Q4H PRN PO 04/26/17 14:45 UNV (Duoneb Neb) 1 ampule Q4HR NEB PRN INH 04/26/17 14:45 UNV Family History States that his mother had an [place] at age 42. Social History Patient quit smoking cigarettes one year ago but prior to that he smoked 2 packs of cigarettes daily for 22 years. He continues to chew tobacco. Denies alcohol. Denies illicit drugs. Physical Exam Vital Signs Vital Signs Date Time Temp Pulse Resp B/P (MAP) Pulse Ox O2 Delivery O2 Flow Rate FiO2 04/26/17 14:30 98.7 76 24 133/91 (105) 94 Physical Exam GENERAL: This is a well-nourished, well-developed patient, in no apparent distress. Patient speaks in clear complete sentences. Patient is pleasant. HEENT: Head is atraumatic and normocephalic. Neck is supple without lymphadenopathy and trachea is midline. No JVD or carotid bruits. CARDIOVASCULAR: Regular rate and rhythm without murmurs, gallops, or rubs. RESPIRATORY: Clear to auscultation. Breath sounds equal bilaterally. No wheezes , rales, or rhonchi. Chest wall is nontender. No use of accessory muscles. GASTROINTESTINAL: Abdomen is nontender, nondistended. Abdomen soft. No obvious pulsatile mass or bruit. No CVA tenderness. Strong femoral pulses bilaterally. Normal bowel sounds in all quadrants. MUSCULOSKELETAL: Patient is moving upper and lower extremities freely. No calf tenderness or edema, no Homans sign. Strong pulses in upper and lower extremities. NEUROLOGICAL: Patient is alert and oriented. Cranial nerves 2-12 are grossly intact. No focal deficits and speech is clear. SKIN: No rash and turgor is normal. Imaging CXR has no acute cardiopulmonary abnormalities. Course Initial EKGs have sinus rhythm without significant ST segment depressions or elevations. Caprini VTE Risk Assessment Caprini VTE Risk Assessment: No/Low Risk (score <= 1) Caprini Risk Assessment Model Point Value = 1 Point Value = 2 Point Value = 3 Point Value = 5 Age 41-60 Minor surgery BMI > 25 kg/m2 Swollen legs Varicose veins or History of unexplained or recurrent spontaneous Oral contraceptives or hormone replacement Sepsis (< 1 month) Serious lung disease, including pneumonia (< 1 month) Abnormal pulmonary function Acute myocardial infarction Congestive heart failure (< 1 month) History of inflammatory bowel disease Medical patient at bed rest Age 61-74 Arthroscopic surgery Major open surgery (> 45 min) Laparoscopic surgery (> 45 min) Malignancy Confined to bed (> 72 hours) Immobilizing plaster cast Central venous access Age >= 75 History of VTE Family history of VTE Factor V Leiden Prothrombin [id number] Lupus anticoagulant Anticardiolipin antibodies Elevated serum homocysteine Heparin-induced thrombocytopenia Other congenital or acquired thrombophilia Stroke (< 1 month) Elective arthroplasty Hip, pelvis, or leg fracture Acute spinal cord injury (< 1 month) Prophylaxis Regimen Total Risk Factor Score Risk Level Prophylaxis Regimen 0-1 Low Early ambulation 2 Moderate Order ONE of the following: *Sequential Compression Device (SCD) *Heparin 5000 units SQ BID 3-4 Higher Order ONE of the following medications: *Heparin 5000 units SQ TID *Enoxaparin/Lovenox 40 mg SQ daily (WT < 150 kg, CrCl > 30 mL/min) *Enoxaparin/Lovenox 30 mg SQ daily (WT < 150 kg, CrCl > 10-29 mL/min) *Enoxaparin/Lovenox 30 mg SQ BID (WT < 150 kg, CrCl > 30 mL/min) AND/OR *Sequential Compression Device (SCD) 5 or more Highest Order ONE of the following medications: *Heparin 5000 units SQ TID (Preferred with Epidurals) *Enoxaparin/Lovenox 40 mg SQ daily (WT < 150 kg, CrCl > 30 mL/min) *Enoxaparin/Lovenox 30 mg SQ daily (WT < 150 kg, CrCl > 10-29 mL/min) *Enoxaparin/Lovenox 30 mg SQ BID (WT < 150 kg, CrCl > 30 mL/min) AND *Sequential Compression Device (SCD) Assessment and Plan Assessment and Plan * Chest pain: Patient will continue to have serial cardiac enzymes and EKGs for ruling out purposes. Dr. Crooks has evaluated the patient in the chest pain center. He is having prolonged chest discomfort. Patient is adamant that he wants a cardiac catheterization. Discussed the patient with Dr. chan who agrees to see the patient and will be performing a cardiac catheterization on him this evening. Dr. Payton has graciously agreed to set this patient's time. * Hyperlipidemia: We'll start atorvastatin. * Hypertension: Discontinue amlodipine. Start lisinopril and carvedilol. * Chronic back pain: Continue his meds. * Tobacco abuse: Patient has been counseled for some tobacco cessation. Patient is stable this time. He is agreeable to this plan. Nnamdi Chaves Apr 26, 2017 14:50
[2017-04-26] MEDS ORDERED: amLODIPine BESYLATE 5 MG TAB PO SCH (15:00)
[2017-04-26] MEDS: PANTOPRAZOLE SOD 40 MG DELAYED RELEASE TAB PO SCH (15:48)
[2017-04-26] MEDS: buPROPion HCL 150 MG SUSTAINED RELEASE TAB PO SCH ×2 (15:49→21:17)
[2017-04-26] MEDS ORDERED: OXYC30TA PO (16:40)
[2017-04-26] MEDS ORDERED: IOHEXOL 350 MG/ML 100 ML BTL (for Cath Lab) OTHER ONE (17:14)
[2017-04-26] MEDS ORDERED: HEPARIN-NS/PF INJ 1,000 ML ONE ×2 (17:20→17:24)
[2017-04-26] MEDS ORDERED: MIDAZOLAM HCL 5 MG/5 ML VIAL ONE (17:21)
[2017-04-26 17:37] LABS: CREATINE KINASE 122 U/L (39-308)
[2017-04-26] MEDS ORDERED: MIDAZOLAM HCL 2 MG/2 ML VIAL ONE (17:41)
--- NOTE | 2017-04-26 17:45 | MB ---
cc: ANA WHITFIELD MD DATE OF CONSULTATION 04/26/17 HISTORY OF PRESENT ILLNESS Mr. Krueger is a 36-year-old white male with a history of hypertension, dyslipidemia and mild left ventricular dysfunction. He developed substernal chest discomfort earlier today when he was moving boxes at work. He also had dizziness and shortness of breath, nausea and diaphoresis. He was reportedly seen in [place] about a year ago and his echogram showed ejection fraction in the 40s. He was not treated for cardiomyopathy at that time. PAST MEDICAL HISTORY 1. Hypertension, 2. Dyslipidemia. 3. Left ventricular dysfunction, 4. Right wrist surgery MEDICATIONS 1. Norvasc. 2. Xanax. 3. Hydrocodone acetaminophen 4. Wellbutrin. ALLERGIES None. SOCIAL HISTORY The patient quit smoking last year. He does not drink alcohol. Chew tobacco. FAMILY HISTORY Positive heart disease in mother who had myocardial function at the age of 42. REVIEW OF SYSTEMS Otherwise negative. PHYSICAL EXAMINATION VITAL SIGNS: Blood pressure 133/91, pulse 79 and regular. HEENT: Negative. 2+ carotid upstrokes. No bruits. LUNGS: Clear. HEART: Regular with no murmur, gallop or rub. ABDOMEN: Soft. No bruits. EXTREMITIES: Without edema. 2+ distal pulses NEUROLOGIC: Nonfocal. CARDIOLOGY STUDIES EKG was reviewed and showed normal sinus rhythm, no acute changes. LABORATORY DATA Hemoglobin 13.8, potassium 4.1, creatinine 1.1, AST 35, ALT 63, LDL 146, HDL 42. DIAGNOSES 1. Unstable angina 2. Hypertension 3. Dyslipidemia 4. Cardiomyopathy. DISPOSITION Mr. Krueger will undergo cardiac catheterization and coronary intervention if necessary. He understands the risks and benefits, and wishes to proceed. We will initiate therapy with beta sharon, TAVIA inhibitor, statin and aspirin. MD HARISH Cuello/ /5:01 PM /5:36 PM MTDD
[2017-04-26 17:49] LABS: CKMB 0.8 NG/ML (0.5-3.6)
[2017-04-26] MEDS ORDERED: SODIUM CHLOR 0.9% 1000 ML INJ 500 ML IV SCH (18:11)
--- NOTE | 2017-04-26 18:17 | CATHPROC ---
[employer] HIS Report Study Information Study Number Admission Scheduled Start Study Start [id number] Apr 26 2017 2:03PM 04/26/2017 Apr 26 2017 5:00PM [place] [facility] Cardiac Catheterization Admit Source Facility Department Emergency department [facility] - Toll Line Mechanic Physician and Clinical Staff Initial Gonzalo Norris Balloon Artist Anil Smith,SHAWANDA Balloon Artist Nancie Deal,SHAWANDA Recorder Jessie Bergman,SUPERVISOR OF OFFICIALS TECH2 Scrub Joy Christian,RT(R) Procedures Performed Procedure Location (Site) Vessel Name Angiogram LV LV Ventricle Coronary Angiograms LCA Left Coronary Coronary Angiograms RCA Right Coronary Equipment Time Dog Show Judge Description Size Mfg Part Number Used/Scraped TRANSDUCER, TRUWAVE [id number] 17:21 [employer] * Used W/STOCKCOCK *[id number] 17:57 [employer] MEDICAL VASCADE, FR5 CLOSURE SYSTEM FR 5 Used *[id number] *[id number] *[id number] 17:29 MALLINCKRODT SYRINGE, ANGIOMAT 150ML 150ML *[id number] Used 2SUB [id number] 17:21 [employer] INDUSTRIES PACK, CCL CUSTOM * Used *[id number] 17:21 [employer]ia PACER PEN, SKIN DUAL W/ RULER * Used *[id number] 17:27 [employer] BiotechTRONIC JL 4.0 DXTERITY CATHETER FR 5 Used *[id number] 0011-23 17:26 [employer] PIGTAIL ANG. CATHETER FR 5 Used *[id number] 17:21 [employer] MEDICAL WIRE, 3MMJ .035 180CM 180CM Used *[id number] PROBE COVER, STERILE [id number] 17:21 Sessions * Used ULTRASOUND W/ GEL *[id number] 17:21 NAMIC MANIFOLD, 4 PORT * Used *[id number] 17:21 NAMIC TUBING, HIGH PRESSURE 48" 48" Used *[id number] 17:21 [employer]COMED OMNIPAQUE, 350 MG, 150ML 150ML [id number] Used 17:44 [employer]COMED OMNIPAQUE, 350 MG, 50ML 50ML [id number] Used [id number] 17:21 [employer] MEDICAL BLANKET,WARM AIR CCL * Used *[id number] 17:21 TERUMO MEDICAL SHEATH, FR5 TERUMO (10CM) FR 5 Used *[id number] Equipment Model, Serial, Lot Number and Expiration Data Description Model Number Serial Number Lot Number Expiration Date JL 4.0 DXTERITY CATHETER [id number] 02-02-2020 History: Current Medications Medication Dosage/Unit Route Frequency Last Date/Time Taken NORVASC Xanax History: Allergies Allergy Reaction No Known Allergies History: Risk Factors Family History of Hypertension Dyslipidemia Previous ME Previous Heart Failure Premature CAD Yes Yes Yes No Yes Prior Valve Prior PCI Prior CABG Surgery No No No Cerebrovascular Peripheral Artery Chronic Lung On Dialysis Diabetes Disease Disease Disease No No No No No History: Symptoms/Diagnosis Selection Items Chest pain SOB History: Stress Tests Stress or Imaging Studies Performed No History: Other Current Smoker Quit Packs a Day Years Used Pack Years No 1 Years Ago 2 22 44 Labs Hgb (g/dl) Hct (%) RBC (MIL/MM3) WBC (l/cumm) Platelets (thousands) 11.60-17.00 35.00-51.00 4.00-5.90 4.00-11.00 150.00-450.00 13.8 41.9 4.8 5.8 304 Glucose (mg/dl) BUN (mg/dl) Creatinine (mg/dl) BUN:Creatinine (1:x) 74.00-106.00 7.00-18.00 0.50-1.30 10.00-20.00 92 6 1.1 5.5 Na (meq/l) K (meq/l) Cl (meq/l) CO2 (mmol/L) Ca (mg/dl) 136.00-145.00 3.50-5.10 98.00-107.00 21.00-32.00 8.50-10.10 139 4.1 102 30 9.2 Troponin I (ng/ml) CPK (u/l) CPK-MB (ng/ML) 0.02-0.05 26.00-308.00 0.50-3.60 0.02 122 0.8 Medication Medication Total Dose (Bolus/Oral) Medication Total Dosage/Unit 1% XYLOCAINE 20 mL FENTANYL 150 mcg OXYGEN 2 l/min VERSED 6 mg Medications (Bolus/Oral) Medication Time Given Dosage/Unit Administered By Reason VERSED 04/26/2017 5:28:20 PM 2 mg Adamy, Nancie 2 mg VERSED given in lab by Nancie Deal RN in Left Antecubital via Peripheral IV. Ordered by Gonzalo Rich. FENTANYL 04/26/2017 5:30:06 PM 50 mcg Adamy, Nancie 50 mcg FENTANYL given in lab by Nancie Deal RN in Right Antecubital via Peripheral IV. Ordered b Gonzalo Macias. OXYGEN 04/26/2017 5:36:10 PM 2 l/min Nancie Deal Patient arrived on 2 l/min OXYGEN given by Nancie Deal RN via Nasal. VERSED 04/26/2017 5:38:43 PM 2 mg Adamy, Nancie 2 mg VERSED given in lab by Nancie Deal RN in Left Antecubital via Peripheral IV. Ordered by Gonzalo Rich. FENTANYL 04/26/2017 5:39:10 PM 50 mcg Adamy, Nancie 50 mcg FENTANYL given in lab by Nancie Deal RN in Right Antecubital via Peripheral IV. Ordered b Gonzalo Macias. 1% XYLOCAINE 04/26/2017 5:40:54 PM 20 mL Gonzalo Maldonado 20 mL 1% XYLOCAINE given in lab by Gonzalo Maldonado in Right Groin via Subcutaneous. Ordered by Gonzalo Weller. VERSED 04/26/2017 5:43:42 PM 2 mg Adamy, Nancie 2 mg VERSED given in lab by Nancie Deal RN in Left Antecubital via Peripheral IV. Ordered by Gonzalo Rich. FENTANYL 04/26/2017 5:44:06 PM 50 mcg Adamy, Nancie 50 mcg FENTANYL given in lab by Nancie Deal RN in Right Antecubital via Peripheral IV. Ordered b y Gonzalo Maldonado. Medication (Drip) Medication Time Given Dosage/Unit Concentration/Unit Diluent (ml) Solution IV Solutions 04/26/2017 5:22:36 PM 0 mL (IV) 500 NaCl .9 Patient arrived on IV Solutions in Left Antecubital via Peripheral IV. Pump/Drip Flow = 20 ml/hr usin g NaCl .9. Initial Case Assessment Cardiovascular HR NIBP Chest Pain 86 147/91 7 Circulatory - Right Pulses Dorsalis Pedis Femoral 2 2 Scale (0,1,2,3,4,d) Circulatory - Left Pulses Dorsalis Pedis Femoral 2 2 Scale (0,1,2,3,4,d) Neurological State Oriented to time-place- Alert Moves all extremities person Respiration - General Respiration Rate SpO2 (%) (B/min) 12 96 Final Case Assessment Cardiovascular HR Rhythm NIBP Chest Pain 86 SR 127/78 7 Circulatory - Right Pulses Dorsalis Pedis Femoral 2 2 Scale (0,1,2,3,4,d) Circulatory - Left Pulses Dorsalis Pedis Femoral 2 2 Scale (0,1,2,3,4,d) Neurological State Oriented to time-place- Alert Moves all extremities person Respiration - General Respiration Rate SpO2 (%) (B/min) 9 97 Chronological Log Time Study Chronological Log 17:14:10 Patient arrived via Bed. 17:14:15 Patient Name, D.O.B, / Armband Verified By R.N. 17:15:18 Pre-op and post- op instructions given; patient acknowledges understanding of instructions. Vitals capture started with the following parameters, Patient=Adult, Interval=5 min, Initial Pr okinod=596 mmHg, 17:19:57 Deflation Rate=5 mmHg, Cuff placed on Left Arm 17:20:17 Consent signed by the physician and the patient and verified by the Toll Line Mechanic staff. 17:20:19 Verbal Stimulation=2 Physical Stimulation=2 Airway=2 Respiration=2 TOTAL=8. (0=absent, 1=li mited, 2=present) 17:21:08 HR=79 bpm, CBNT=149/91 mmhg, SpO2=97.0 %, Resp=10 B/min, Pain=7, Keyur=10, Burnham=2 17:22:08 Presedation assessment performed by Toll Line Mechanic RN. 17:22:12 Patient has been NPO for More than 6Hrs. 17:22:13 Skin Breakdown-none 17:22:14 Keli Prominences Protected 17:22:18 A # 20 IV was noted in the Antecubital (left). Grade = patent 17:22:36 Patient arrived on IV Solutions in Left Antecubital via Peripheral IV. Pump/Drip Flow = 20 ml/hr using NaCl .9. 17:22:57 History and physical on the chart or being dictated. Assessment: Initial Case, HR=86 BPM, DRDY=432/91 mmhg, Chest Pain=7 Right Pulses: Enoch Ped=2, Femoral=2 17:22:58 Left Pulses: Enoch Ped=2, Femoral=2 Neurological: State=Alert, Ox3, MEDRANO Respiration: Resp=12 B/min, SpO2=96 % 17:23:01 Reference ECG taken 17:25:18 MD arrived. 17:25:34 HR=84 bpm, FWNK=738/96 mmhg, SpO2=94.0 %, Resp=11 B/min, Keyur=10, Burnham=2 17:25:53 Bilateral groins prepped with 2% chlorhexidine, and draped after a 3 minute waiting time. 17:28:20 2 mg VERSED given in lab by Nancie Deal RN in Left Antecubital via Peripheral IV. Orde red by Gonzalo Maldonado. 50 mcg FENTANYL given in lab by Nancie Deal, SHAWANDA in Right Antecubital via Peripheral IV. Ord ered by Joel, 17:30:06 Gonzalo. 17:30:35 HR=86 bpm, LNFO=111/94 mmhg, SpO2=95.0 %, Resp=10 B/min 17:32:51 Pressure channel 1 zeroed. 17:35:34 HR=87 bpm, UHQZ=456/91 mmhg, SpO2=94.0 %, Resp=12 B/min 17:36:10 Patient arrived on 2 l/min OXYGEN given by Nancie Deal, SHAWANDA via Nasal. 17:38:43 2 mg VERSED given in lab by Nancie Deal RN in Left Antecubital via Peripheral IV. Orde red by Gonzalo Maldonado. 50 mcg FENTANYL given in lab by Nancie Deal, SHAWANDA in Right Antecubital via Peripheral IV. Ord ered by Joel, 17:39:10 Gonzalo. 17:40:31 HR=91 bpm, SHNR=623/91 mmhg, SpO2=97.0 %, Resp=9 B/min Time Out. Correct patient, correct procedure, correct physician, power injector loaded with con trast with surgical team 17:40:35 present. Time Out Concurred by MD and individual staff in procedure. 17:40:53 Case Start 17:40:54 20 mL 1% XYLOCAINE given in lab by Gonzalo Maldonado in Right Groin via Subcutaneous. Ordered by Gonzalo Maldonado. 17:42:51 Access site was Right Femoral Artery. 17:42:59 A SHEATH, FR5 TERUMO (10CM) FR 5 was advanced into the Fem Art (right) using the Percutaneo us technique. 17:43:42 2 mg VERSED given in lab by Nancie Deal, SHAWANDA in Left Antecubital via Peripheral IV. Orde red by Gonzalo Maldonado. 17:44:01 A PIGTAIL ANG. CATHETER FR 5 was advanced over a wire. OMNIPAQUE, 350 MG, 50ML 50ML was use d for injections. 50 mcg FENTANYL given in lab by Nancie Deal, SHAWANDA in Right Antecubital via Peripheral IV. Ord ered by Joel, 17:44:06 Gonzalo. Recorded Pressure: LV, HR=93, Condition=Condition 1 17:45:04 (Left Ventricle) LV 101/2/11 17:45:32 HR=89 bpm, UWOP=116/89 mmhg, SpO2=94.0 %, Resp=10 B/min, Keyur=10 17:45:54 The LV was injected at 10 cc/sec for a total of 30. OMNIPAQUE, 350 MG, 50ML 50ML used. Recorded Pressure: LV, Ao, HR=87, Condition=Condition 1 17:46:21 (Left Ventricle) LV 118/8/13, (Aorta) Ao 105/80/91 After removing the current catheter a JL 4.0 DXTERITY CATHETER FR 5 was advanced over a WIRE, 3 MMJ .035 180CM 17:48:17 180CM. After removing the current catheter a JL 5.0 INFINITI CATHETER FR 5 was advanced over a WIRE, 3 MMJ .035 180CM 17:49:08 180CM. 17:49:53 The LCA was injected and visualized at various angles. OMNIPAQUE, 350 MG, 150ML 150ML used . 17:50:34 HR=90 bpm, YMHJ=664/89 mmhg, SpO2=96 %, Resp=7 B/min, Pain=0, Keyur=10, Burnham=2 After removing the current catheter a AR MOD INFINITI CATHETER FR 5 was advanced over a WIRE, 3 MMJ .035 180CM 17:51:35 180CM. After removing the current catheter a 3DRC INFINITI CATHETER FR 5 was advanced over a WIRE, 3MM J .035 180CM 17:55:17 180CM. 17:55:22 The RCA was injected and visualized at various angles. OMNIPAQUE, 350 MG, 150ML 150ML used . 17:55:37 HR=91 bpm, ABHH=162/85 mmhg, SpO2=97.0 %, Resp=8 B/min, Keyur=10 17:56:22 Catheter was removed 17:56:33 Case End 18:00:34 HR=96 bpm, BLHL=190/86 mmhg, SpO2=97.0 %, Resp=12 B/min 18:02:51 VASCADE, FR5 CLOSURE SYSTEM FR 5 placement in the Fem Art (right) 18:05:31 HR=89 bpm, JLSK=686/82 mmhg, SpO2=97.0 %, Resp=9 B/min 18:10:34 HR=84 bpm, YCPT=311/78 mmhg, SpO2=98.0 %, Resp=10 B/min Assessment: Final Case, HR=86 BPM, Rhythm=SR, MXNQ=393/78 mmhg, Chest Pain=7 Right Pulses: Enoch Ped=2, Femoral=2 18:12:59 Left Pulses: Enoch Ped=2, Femoral=2 Neurological: State=Alert, Ox3, MEDRANO Respiration: Resp=9 B/min, SpO2=97 % 18:14:14 Sterile dressing applied to site 18:14:16 No case complications noted. 18:14:17 Cine recording checked. 18:14:18 Bedside Report will be given. 18:14:22 Implantable Device card placed in patient's chart. 18:15:19 Vitals capture stopped. 18:15:38 Patient moved to BED 18:16:12 [facility] End Study - Contrast Media Used In Study Contrast Total Opened (mL) Total Used (mL) Total Wasted (mL) Omnipaque 80 80 0 End Study - Maximum Contrast Load Max Contrast Load (mL) 540.9 End Study - Radiation Exposure Fluoro Time (minutes) 2.5 End Study - Sheaths Sheaths Pulled By Sheath Hold Time (min) Joy Christian End Study - Patient Disposition Complications Transferred To Interventional Outcome No Telemetry Bed No attempt made
[2017-04-26] MEDS: ACETAMINOPHEN/HYDROcodone 325 MG/10 MG TAB PO PRN (19:38)
[2017-04-26] MEDS ORDERED: ATORVASTATIN 40 MG TAB PO SCH (21:00)
--- NOTE | 2017-04-26 21:13 | MA ---
cc: ANA WHITFIELD MD DATE: 04/26/2017 INDICATION Unstable angina, cardiomyopathy. PROCEDURE PERFORMED 1. Retrograde left heart catheterization with left ventriculography and selective coronary angiography. 2. Moderate sedation. ACCESS SITE Right femoral artery. EQUIPMENT USED 5 Burundian pigtail catheter, 5 Burundian JL4 and AR modified coronary artery catheters. MEDICATIONS Versed IV, fentanyl IV. CONTRAST Omnipaque 80 cc COMPLICATIONS: None. BLOOD LOSS: Less than 10 cc METHOD OF HEMOSTASIS Manual compression. RESULTS HEMODYNAMICS Heart rate 80 beats per minute. Left ventricular end-diastolic pressure 8 mmHg. Left ventricle 110/8. Aorta 110/50/91. LEFT VENTRICULOGRAPHY Left ventricular ejection fraction 55%. Wall motion normal. No mitral regurgitation. CORONARY ANGIOGRAPHY Left main coronary artery, patent. Left anterior descending coronary artery, patent. D1 patent. Left circumflex artery, patent. OM1 was patent. Ramus intermedius, patent. Right coronary is a dominant vessel which is patent. PDA patent, PLV patent. DIAGNOSIS: 1. Patent coronary arteries. 2. Preserved left ventricular systolic function. DISPOSITION: Mr. Krueger can be reassured about his cardiac status. He has patent coronary arteries and no evidence of significant left ventricular dysfunction. I recommend to continue modification of his cardiac risk factors. He will follow up with his primary physician after discharge. MD HARISH Cuello/KASEY /6:00 PM /8:51 PM [place]RA[place]
[2017-04-26] MEDS: ALPRAZolam 0.5 MG TAB PO SCH (21:18)
[2017-04-26] MEDS: CARVEDILOL 3.125 MG TAB PO SCH (21:18)
[2017-04-26 21:19] LABS: HDL CHOLESTEROL 48.7 MG/DL (40.0-60.0)
[2017-04-27] VITALS (13 sets, daily range): BP systolic 131–132; BP diastolic 88–98; PULSE 73–106; RESP 18; TEMP 97.8–98.6; O2SAT 97
[2017-04-27] MEDS: ACETAMINOPHEN/HYDROcodone 325 MG/10 MG TAB PO PRN ×2 (01:37→11:09)
[2017-04-27] MEDS ORDERED: ASPIRIN 325 MG TAB PO SCH (09:00)
[2017-04-27] MEDS ORDERED: LISINOPRIL 10 MG TAB PO SCH (09:00)
[2017-04-27] MEDS: CARVEDILOL 3.125 MG TAB PO SCH (09:16)
[2017-04-27] MEDS: PANTOPRAZOLE SOD 40 MG DELAYED RELEASE TAB PO SCH (09:16)
[2017-04-27] MEDS: buPROPion HCL 150 MG SUSTAINED RELEASE TAB PO SCH (09:16)
[2017-04-27] MEDS: ALPRAZolam 0.5 MG TAB PO SCH (09:17)
[2017-04-27 10:04] LABS: BICARBONATE 29.1 MEQ/L (21.0-32.0)
[2017-04-27 10:08] LABS: HDL CHOLESTEROL 49.5 MG/DL (40.0-60.0)
--- NOTE | 2017-04-27 10:27 | PD.CARD.PN ---
Subjective Subjective Remarks No CP or SOB, feels fine Objective Medications Current Medications Medications (Trade) Dose Ordered Sig/Joanie Route Start Time Stop Time Status Last Admin (Tylenol) 500 mg Q4H PRN PO 04/26/17 14:45 (Zofran Inj) 4 mg Q6H PRN IV PUSH 04/26/17 14:45 (Protonix) 40 mg DAILY PO 04/26/17 14:45 04/27/17 09:16 (Aspirin) 325 mg DAILY PO 04/27/17 09:00 04/27/17 09:16 (Duoneb Neb) 1 ampule Q4HR NEB PRN INH 04/26/17 14:45 (Catapres) 0.1 mg Q4H PRN PO 04/26/17 14:45 (Xanax) 0.5 mg BID PO 04/26/17 21:00 04/27/17 09:17 (Wellbutrin Sr) 150 mg Q12HR PO 04/26/17 15:00 04/27/17 09:16 ([place] 10-325 Mg) 1 tab Q6H PRN PO 04/26/17 15:00 04/27/17 01:37 (Lipitor) 40 mg HS PO 04/26/17 21:00 04/26/17 21:17 (Coreg) 3.125 mg Q12HR PO 04/26/17 21:00 04/27/17 09:16 (Prinivil) 10 mg DAILY PO 04/27/17 09:00 04/27/17 09:16 (Roxicodone) 30 mg BID PO 04/26/17 21:00 04/27/17 09:17 Vital Signs / I&O Vital Signs Date Time Temp Pulse Resp B/P (MAP) Pulse Ox O2 Delivery O2 Flow Rate FiO2 04/27/17 07:55 97.8 95 18 132/98 (109) 97 04/27/17 05:00 79 04/27/17 04:00 78 04/27/17 03:14 98.6 77 18 131/88 (102) 97 04/27/17 03:00 74 04/27/17 02:00 78 04/27/17 01:00 88 04/27/17 00:00 100 04/26/17 23:01 98.6 95 18 138/72 (94) 97 04/26/17 23:00 82 04/26/17 22:20 18 04/26/17 22:00 100 04/26/17 21:00 88 04/26/17 20:00 84 04/26/17 19:33 98.6 82 18 133/76 (95) 97 04/26/17 19:00 74 04/26/17 18:35 98.4 78 18 124/85 (98) 97 04/26/17 14:53 79 04/26/17 14:30 98.7 76 24 133/91 (105) 94 Physical Exam GENERAL: In NAD SKIN: Warm and dry. HEAD: Normocephalic. EYES: No scleral icterus. No injection or drainage. NECK: Supple, trachea midline. No JVD or lymphadenopathy. CARDIOVASCULAR: Regular rate and rhythm without murmurs, gallops, or rubs. RESPIRATORY: Breath sounds equal bilaterally. No accessory muscle use. GASTROINTESTINAL: Abdomen soft, non-tender, nondistended. MUSCULOSKELETAL: No cyanosis, or edema. Groin stable. Laboratory Laboratory Tests Test 04/26/17 16:20 04/26/17 19:22 04/27/17 08:55 Total Creatine Kinase 122 U/L Creatine Kinase MB 0.8 NG/ML Troponin I LESS THAN 0.02 NG/ML Triglycerides Level 149 MG/DL 123 MG/DL Cholesterol Level 162 MG/DL 173 MG/DL LDL Cholesterol 84 MG/DL 99 MG/DL HDL Cholesterol 48.7 MG/DL 49.5 MG/DL Cholesterol/HDL Ratio 3.32 RATIO 3.49 RATIO Blood Urea Nitrogen 12 MG/DL Creatinine 0.88 MG/DL Random Glucose 98 MG/DL Calcium Level 8.8 MG/DL Sodium Level 136 MEQ/L Potassium Level 4.0 MEQ/L Chloride Level 102 MEQ/L Carbon Dioxide Level 29.1 MEQ/L Anion Gap 5 MEQ/L Estimat Glomerular Filtration Rate 98 ML/MIN Assessment and Plan Problem List: (1) Chest pain ICD Codes: R07.9 - Chest pain, unspecified (2) Bipolar II disorder ICD Codes: F31.81 - Bipolar II disorder Status: Acute Assessment and Plan Cath with no evidence of CAD or LV dysfunction. Groin stable. DC home. F/u with PCP as outpatient. Continue risk factor modification. Gonzalo Maldonado MD Apr 27, 2017 10:27
[2017-04-27] MEDS ORDERED: HYDR-3583 PO (11:09)
[2017-04-27] MEDS ORDERED: OXYC30TA PO (11:09)
[2017-04-27] MEDS ORDERED: ALPR.5 PO (11:09)
--- NOTE | 2017-04-27 11:14 | HHI.DS ---
Discharge Summary Admission Date Apr 26, 2017 at 14:03 Discharge Date: Apr 27, 2017 Admitting Diagnosis (1) Chest pain ICD Code: R07.9 - Chest pain, unspecified Procedures Cardiac Catheterization Brief History - From Admission Presented to the ER with Chest Pain CBC/BMP: 04/27/17 0855 Significant Findings Laboratory Tests Test 04/26/17 16:20 04/26/17 19:22 04/27/17 08:55 Troponin I LESS THAN 0.02 NG/ML Hospital Course Mr. Krueger is a 36-year-old male. He was admitted secondary to chest pain. Workup included a cardiac catheter monitoring of EKG and enzymes. Cardiac catheter was negative. He is medically stable for discharge to home today and follow-up with his primary care doctor. Pt Condition on Discharge: Stable Discharge Disposition: Discharge Home Discharge Time: <= 30 minutes Discharge Instructions DIET: Follow Instructions for: As Tolerated, No Restrictions Activities you can perform: Regular-No Restrictions Follow up Referrals: PCP Follow-up - 2 Weeks Continued Medications: Alprazolam (Xanax) 0.5 Mg Tab 0.5 MG PO BID for Anxiety and/or Insomnia, #14 TAB 0 Refills (This prescription has been renewed) Amlodipine (Norvasc) 5 Mg Tab 5 MG PO DAILY for Blood Pressure Management, TAB 0 Refills Hydrocodone-Acetaminophen (Hydrocodone-Acetaminophen) 10-325 mg Tab 1 TAB PO Q6H PRN for PAIN, #30 TAB 0 Refills (This prescription has been renewed ) Oxycodone (Oxycodone) 30 Mg Tab 30 MG PO BID for Pain Management, #14 TAB 0 Refills (This prescription has been renewed) Chris Simms MD Apr 27, 2017 11:14
--- NOTE | 2017-04-27 15:51 | EKG ---
Date Performed: 04/26/2017 Time Performed: 16:18:14 PTAGE: 36 years EKG: Sinus rhythm PATTERN CONSISTENT WITH PULMONARY DISEASE RIGHT VENTRICULAR HYPERTROPHY ABNORMAL ECG PREVIOUS TRACING : 03/01/2017 12.49 DOCTOR: Morgan Rocah Interpretating Date/Time 04/27/2017 15:49:14
== END 2017-04-27 12:04 | disposition home or self-care (01) ==
LOC: NEDDLT 13:53 → NEPFCDU 14:03 → HCIS 17:20
PROVIDERS: ADMIT Hospitalist; ATTEND Hospitalist
DX: I20.0 Unstable angina (principal); I11.0 Hypertensive heart disease with heart failure; I50.9 Heart failure, unspecified; I42.9 Cardiomyopathy, unspecified; R94.31 Abnormal electrocardiogram [ECG] [EKG]; E78.5 Hyperlipidemia, unspecified; M54.9 Dorsalgia, unspecified; G89.29 Other chronic pain; F31.81 Bipolar II disorder; F17.220 Nicotine dependence, chewing tobacco, uncomplicated; Z79.899 Other long term (current) drug therapy
CPT/HCPCS: 71010; 80048; 80053; 80061; 80307; 82550; 82552; 83735; 84484; 85025; 85610; 85730; 93005; 93458; 99152; 99153; 99285; C1760; C1769; C1893; G0269; G0378; J1644; J2250; J3010; Q9967

== ENCOUNTER 2017-09-06 07:39 | Emergency (ER) | payer MEDICAID, OTHER ==
[~2017-09-06] VITALS: Ht 175.3 cm; Wt 129.0 kg
[~2017-09-06 07:39] MED LIST changes: -ALPR.5 PO; -ANUS25SU RECTAL; -ASPI81CH25 CHEW; -ATEN50TA PO; -HYDR-4107 PO; -INVE6TAB3 PO; -LAMO25 PO; -LISI20TA PO; -METH500T3 PO; +NAPR500 PO; -OXYC1CAP PO
[2017-09-06 07:50] VITALS: BP 140/94; PULSE 99; RESP 16; TEMP 98.6; O2SAT 98
[2017-09-06] MEDS ORDERED: ASPI81CH7 CHEW (07:53)
[2017-09-06] MEDS ORDERED: COUM1TAB PO (07:53)
--- NOTE | 2017-09-06 07:59 | PD ---
HPI Chief Complaint: Chest Pain Time Seen by Provider: 07:53 Travel History International Travel<30 days: No Contact w/Intl Traveler<30days: No Traveled to known affect area: No History of Present Illness HPI This 36-year-old male says he was at [facility] a half hour ago when he had an onset of substernal squeezing pain. Pain is been fairly persistent since it started. He has had occasional pain in the past but says this is more severe than pain is had before. He feels a little bit short of breath. He says his left shoulder feels tight. There is no radiation to the arm or to the jaw. The pain is not pleuritic. He has not had fever or chills. He says he was diagnosed with congestive failure last year. He is on aspirin, Coumadin and amlodipine though he says he has no local doctor. He is not aware of any history of CA. He says he was admitted to the hospital for 1 day when he had the congestive heart failure. He has had some swelling of his legs. He was seen in the emergency room in [place] last week for dehydration and was given 3 bags of IV fluids. He was a smoker in the past but stopped 2 years ago. He does not drink alcohol. He smokes pot occasionally denies cocaine. Review of chart shows that he was admitted to this hospital in April 2017 with chest pain and at that time had a cardiac catheterization which was normal. PFSH Past Medical History Hx Anticoagulant Therapy: Yes (COUMADIN AND BABY ASA) Anxiety: Yes Cancer: No Cardiovascular Problems: Yes (CHF, HTN, CHOL) High Cholesterol: Yes Congestive Heart Failure: Yes Diabetes: No Patient Takes Glucophage: No Diminished Hearing: No Endocrine: No Gastrointestinal Disorders: No Genitourinary: No Hypertension: Yes Immune Disorder: No Implanted Vascular Access Dvce: No Musculoskeletal: Yes (DDD) Neurologic: No Psychiatric: Yes Respiratory: Yes (chf) Past Surgical History Tonsillectomy: Yes Other Surgery: Yes (RIGHT WRIST TENDON REPAIR) Family History Family Myocardial Infarction: Yes Social History Alcohol Use: No Tobacco Use: No Substance Use: No Allergies-Medications (Allergen,Severity, Reaction): Coded Allergies: No Known Allergies (Verified Allergy, Unknown, 09/06/17) Reported Meds & Prescriptions Reported Meds & Active Scripts Active Reported Coumadin (Warfarin) 1 Mg Tab Unknown Dose PO DAILY Aspirin Children's (Aspirin) 81 Mg Chew 81 Mg CHEW DAILY Norvasc (Amlodipine Besylate) 5 Mg Tab 5 Mg PO DAILY Review of Systems General / Constitutional: No: Fever, Chills Eyes: No: Diploplia, Blurred Vision HENT: No: Headaches, Vertigo Cardiovascular: Positive: Chest Pain or Discomfort, Edema Respiratory: Positive: Shortness of Breath, No: Cough Gastrointestinal: No: Nausea Genitourinary: No: Urgency, Frequency Musculoskeletal: No: Myalgias Skin: No Rash Neurologic: No: Weakness, Dizziness Hematologic/Lymphatic: No: Easy Bruising Physical Exam Narrative GENERAL: Well-developed male SKIN: Focused skin assessment warm/dry. HEAD: Atraumatic. Normocephalic. EYES: Pupils equal and round. No scleral icterus. No injection or drainage. ENT: No nasal bleeding or discharge. Mucous membranes pink and moist. NECK: Trachea midline. No JVD. CARDIOVASCULAR: Regular rate and rhythm. No murmur appreciated. RESPIRATORY: No accessory muscle use. Clear to auscultation. Breath sounds equal bilaterally. GASTROINTESTINAL: Abdomen soft, non-tender, nondistended. Hepatic and splenic margins not palpable. MUSCULOSKELETAL: No obvious deformities. No clubbing. No cyanosis. Bilateral pedal edema. NEUROLOGICAL: Awake and alert. No obvious cranial nerve deficits. Motor grossly within normal limits. Normal speech. PSYCHIATRIC: Appropriate mood and affect; insight and judgment normal. Data Data Last Documented VS Vital Signs Date Time Temp Pulse Resp B/P (MAP) Pulse Ox O2 Delivery O2 Flow Rate FiO2 09/06/17 08:16 88 16 143/84 (103) 99 Nasal Cannula 2.00 09/06/17 07:50 98.6 Orders Orders Electrocardiogram (09/06/17 07:53) Basic Metabolic Panel (Bmp) (09/06/17 07:53) B-Type Natriuretic Peptide (09/06/17 07:53) Complete Blood Count With Diff (09/06/17 07:53) Magnesium (Mg) (09/06/17 07:53) Prothrombin Time / Inr (Pt) (09/06/17 07:53) Act Partial Throm Time (Ptt) (09/06/17 07:53) Troponin I (09/06/17 07:53) Chest, Single Ap (09/06/17 07:53) Ecg Monitoring (09/06/17 07:53) Bilateral Bp Monitoring (09/06/17 07:53) Iv Access Insert/Monitor (09/06/17 07:53) Oximetry (09/06/17 07:53) Oxygen Administration (09/06/17 07:53) Sodium Chloride 0.9% Flush (Ns Flush) (09/06/17 08:00) Nitroglycerin Sl (Nitrostat Sl) (09/06/17 08:00) Nitroglycerin 2% Oint (Nitroglycerin 2% (09/06/17 08:00) Ondansetron Inj (Zofran Inj) (09/06/17 08:30) Morphine Inj (Morphine Inj) (09/06/17 08:30) Labs Laboratory Tests Test 09/06/17 08:00 White Blood Count 6.1 TH/MM3 Red Blood Count 4.57 MIL/MM3 Hemoglobin 12.7 GM/DL Hematocrit 37.9 % Mean Corpuscular Volume 82.8 FL Mean Corpuscular Hemoglobin 27.7 PG Mean Corpuscular Hemoglobin Concent 33.5 % Red Cell Distribution Width 14.2 % Platelet Count 367 TH/MM3 Mean Platelet Volume 7.3 FL Neutrophils (%) (Auto) 66.9 % Lymphocytes (%) (Auto) 23.2 % Monocytes (%) (Auto) 6.9 % Eosinophils (%) (Auto) 2.2 % Basophils (%) (Auto) 0.8 % Neutrophils # (Auto) 4.2 TH/MM3 Lymphocytes # (Auto) 1.4 TH/MM3 Monocytes # (Auto) 0.4 TH/MM3 Eosinophils # (Auto) 0.1 TH/MM3 Basophils # (Auto) 0.0 TH/MM3 CBC Comment DIFF FINAL Differential Comment Prothrombin Time 10.1 SEC Prothromb Time International Ratio 1.0 RATIO Activated Partial Thromboplast Time 25.7 SEC Blood Urea Nitrogen 13 MG/DL Creatinine 0.98 MG/DL Random Glucose 107 MG/DL Calcium Level 9.1 MG/DL Magnesium Level 2.1 MG/DL Sodium Level 137 MEQ/L Potassium Level 3.7 MEQ/L Chloride Level 105 MEQ/L Carbon Dioxide Level 28.5 MEQ/L Anion Gap 4 MEQ/L Estimat Glomerular Filtration Rate 87 ML/MIN Troponin I LESS THAN 0.02 NG/ML B-Type Natriuretic Peptide 6 PG/ML MDM Medical Decision Making Medical Screen Exam Complete: Yes Emergency Medical Condition: Yes Medical Record Reviewed: Yes Differential Diagnosis Differential includes coronary artery disease, atypical chest pain Narrative Course Patient had a cath in 2017 which was normal less than 6 months of. His chest pain workup todayis normal. I think he is stable for discharge Diagnosis Primary Impression: Chest pain, atypical Disposition: 01 DISCHARGE HOME Condition: Stable Francisco Javier Ruth MD Sep 06, 2017 07:59
[2017-09-06] MEDS ORDERED: SODIUM CHLORIDE 0.9% FLUSH 10 ML FLUSH IVF PRN (08:00)
[2017-09-06] MEDS ORDERED: NITROGLYCERIN 2% OINT 1 GM PACKET TOPICAL ONE (08:00)
[2017-09-06] MEDS ORDERED: NITROGLYCERIN 0.4 MG SL 25 TABS/BTL SL ONE (08:00)
[2017-09-06 08:05] VITALS: RESP 16; O2SAT 97
[2017-09-06 08:08] LABS: AUTOMATED NEUTROPHIL # 4.2 TH/MM3 (1.8-7.7); BASOPHIL % 0.8 % (0.0-2.0); EOSINOPHIL # 0.1 TH/MM3 (0-0.4); EOSINOPHIL % 2.2 % (0.0-4.0); HEMATOCRIT 37.9 % (39.0-51.0); HEMOGLOBIN 12.7 GM/DL (13.0-17.0); LYMPH % 23.2 % (9.0-44.0); LYMPHOCYTE # 1.4 TH/MM3 (1.0-4.8); MEAN CELL VOLUME 82.8 FL (80.0-100.0); MEAN CORPUSCULAR HEMOGLOBIN 27.7 PG (27.0-34.0); MEAN CORPUSCULAR HGB CONC 33.5 % (32.0-36.0); MEAN PLATELET VOLUME 7.3 FL (7.0-11.0); MONO % 6.9 % (0.0-8.0); MONOCYTE # 0.4 TH/MM3 (0-0.9); NEUT % 66.9 % (16.0-70.0); PLATELET COUNT 367 TH/MM3 (150-450); RED BLOOD COUNT 4.57 MIL/MM3 (4.50-5.90); RED CELL DISTRIBUTION WIDTH 14.2 % (11.6-17.2); WHITE BLOOD COUNT 6.1 TH/MM3 (4.0-11.0)
[2017-09-06 08:16] VITALS: BP 143/84; PULSE 88; RESP 16; O2SAT 99
--- NOTE | 2017-09-06 08:19 | EKG ---
Date Performed: 09/06/2017 Time Performed: 07:45:50 PTAGE: 36 years EKG: SINUS TACHYCARDIA LEFT AXIS DEVIATION POOR R WAVE PROGRESSION NONSPECIFIC INTRAVENTRICULAR CONDUCTION DELAY ABNORMAL ECG PREVIOUS TRACING : 04/26/2017 16.18 No significant change from previous tracing noted. DOCTOR: Camron Kern Interpretating Date/Time 09/06/2017 08:19:17
--- NOTE | 2017-09-06 08:22 | RADRPT ---
EXAM DATE/TIME: 09/06/2017 08:01 [facility] COMPARISON: CHEST SINGLE AP, April 26, 2017, 10:26. INDICATIONS : Substernal chest pain. Lower extremity swelling. Short of breath. MEDICAL HISTORY : Congestive heart failure. Hypercholesterolemia. Hypertension. SURGICAL HISTORY : Tonsillectomy. ENCOUNTER: Initial ACUITY: 1 day PAIN SCORE: 8/10 LOCATION: chest FINDINGS: Lungs are hypoexpanded but are otherwise clear. Cardiomediastinal contours are within normal limits g iven the degree of lung expansion and portable technique. Osseous structures are intact. CONCLUSION: 1. No acute abnormality or significant interval change. Agapito Ward MD on September 06, 2017 at 8:18 Board Certified Radiologist. This report was verified electronically.
[2017-09-06 08:26] LABS: CHLORIDE 105 MEQ/L (98-107); SODIUM (NA) 137 MEQ/L (136-145)
[2017-09-06 08:29] LABS: BICARBONATE 28.5 MEQ/L (21.0-32.0); CALCIUM 9.1 MG/DL (8.5-10.1); GLUCOSE,RANDOM 107 MG/DL (74-106); MAGNESIUM 2.1 MG/DL (1.5-2.5)
[2017-09-06 08:30] LABS: BLOOD UREA NITROGEN 13 MG/DL (7-18)
[2017-09-06] MEDS ORDERED: MORPHINE SULFATE 8 MG/ML INJ IV PUSH ONE (08:30)
[2017-09-06] MEDS ORDERED: ONDANSETRON HCL 4 MG/2 ML VIAL IV PUSH ONE (08:30)
[2017-09-06 08:31] LABS: PROTHROMBIN TIME - PATIENT 10.1 SEC (9.8-11.6)
[2017-09-06 08:33] LABS: CREATININE 0.98 MG/DL (0.60-1.30); GLOMERULAR FILTRATION RATE 87 ML/MIN (>89)
[2017-09-06 08:38] LABS: TROPONIN I LESS THAN 0.02 NG/ML (0.02-0.05)
[2017-09-06 10:01] VITALS: BP 166/87
== END 2017-09-06 10:06 | disposition home or self-care (01) ==
LOC: PHED 07:39
DX: R07.89 Other chest pain (principal); R06.02 Shortness of breath; I11.0 Hypertensive heart disease with heart failure; I50.9 Heart failure, unspecified; F12.90 Cannabis use, unspecified, uncomplicated
CPT/HCPCS: 71045; 80048; 83735; 83880; 84484; 85025; 85610; 85730; 93005; 96374; 96375; 99285; J2270; J2405